=== PATIENT | female | born 1965 | race Caucasian/White ===

== ENCOUNTER 2017-11-13 17:02 | Observation (INO) ==
--- NOTE | 2017-11-13 17:23 | Emergency Department Note ---
START Narrative - START START: 52-year-old female who comes in complaining of rapid heartbeat. Patient's never had that in the past. EKG done shows A. fib flutter with rapid ventricular response 130s. Was taken immediately to a room in the ER.
[2017-11-13] MEDS ORDERED: 0.9 % Sodium Chloride 1,000 ML IVC ONE (17:40)
--- NOTE | 2017-11-13 17:42 | Emergency Department Note ---
Disposition Clinical Impression: Anemia Qualifiers: Anemia type: unspecified type Qualified Code(s): D64.9 - Anemia, unspecified Atrial flutter Qualifiers: Atrial flutter type: unspecified Qualified Code(s): I48.92 - Unspecified atrial flutter Disposition: Admitted As Inpatient Condition: Fair Time of Disposition: 18:26 Arrhythmia/Palpitations HPI - General Chief Complaint: ED Arrhythmia/Palpitations Stated Complaint: "Heart racing" Time Seen by Provider: 11/13/17 17:21 Source: patient Mode of arrival: ambulatory Limitations: no limitations Nursing Notes Reviewed: Yes Vital Signs Reviewed: Yes - History of Present Illness HPI Narrative: 52-year-old female with a history of hypertension diabetes present for evaluation of palpitations. Patient states that she has been having intermittent episodes over the past week and a half. Noted initially when she got up to take the dog out the middle the night. Patient noted he became more symptomatic today at work. Patient felt lightheaded. Patient denies any chest pain. Patient does note dyspnea on exertion. Patient denies any nausea or vomiting. Patient denies any abdominal pain. Patient denies a history of this rhythms in the past. - Related Data Home Medications Medication Instructions Recorded Confirmed Gabapentin [Neurontin] 800 mg PO TID 11/13/17 11/13/17 Ibuprofen [Motrin] 400 mg PO Q6H PRN 11/13/17 11/13/17 Lisinopril [Zestril] 10 mg PO DAILY 11/13/17 11/13/17 Metformin HCl [Metformin HCl ER] 1,000 mg PO BID 11/13/17 11/13/17 hydroCHLOROthiazide 25 mg PO DAILY 11/13/17 11/13/17 [Hydrochlorothiazide] Allergies Allergy/AdvReac Type Severity Reaction Status Date / Time No Known Allergies Allergy Verified 11/13/17 17:17 All systems ED: reviewed and negative except as stated. Constitutional: Reports: as per HPI. Denies: fever Eyes: Reports: as per HPI ENT ED: Reports: as per HPI Cardiovascular: Reports: as per HPI. Denies: chest pain Respiratory: Reports: as per HPI, dyspnea. Denies: cough Gastrointestinal: Reports: as per HPI. Denies: abdominal pain, nausea, vomiting Genitourinary: Reports: as per HPI Musculoskeletal: Reports: as per HPI Integumentary: Reports: as per HPI Neurological: Reports: as per HPI Psychiatric: Reports: as per HPI Endocrine: Reports: as per HPI Hematological/Lymphatic: Reports: as per HPI Past Medical History - Past Medical History Medical history: Reports: diabetes Psychiatric history: Reports: no psych history - Social History Smoking Status: Never smoker Smokeless Tobacco Status: No Alcohol use: Reports: none Drug use: Reports: none Physical Exam - General Limitations: no limitations General appearance: alert, in no apparent distress, obese - Head Head exam: atraumatic, normocephalic, normal inspection - Eye Eye exam: Present: normal appearance, EOMI - ENT ENT exam: normal exam, mucous membranes moist - Neck Neck exam: Present: normal inspection, trachea midline - Chest Chest inspection: Present: normal inspection, symmetric chest wall rise - Respiratory Respiratory exam: Absent: normal lung sounds bilaterally - Abdominal Exam Abdominal exam: Present: soft, Non-Tender. Absent: tenderness, distention, guarding, rebound, rigidity - Extremities Exam Extremities exam: Present: normal inspection. Absent: pedal edema - Back Exam Back exam: Present: normal inspection - Neurological Exam Neurological exam: Present: alert, oriented X3, CN II-XII intact - Skin Skin exam: Present: warm, dry, intact, normal color Course Course Narrative: Patient seen and examined. Patient appears to be in no acute distress. Patient 's EKG reviewed shows it she likely has atrial flutter with 2-1 conduction. Patient will get basic lab work including a lecture lites and cardiac enzymes. Patient will also get a d-dimer she has moderate risk for pulmonary embolism. Vital Signs Temperature 98.6 F 11/13/17 17:12 Pulse Rate 138 11/13/17 17:12 Respiratory Rate 16 11/13/17 17:12 Blood Pressure 119/71 11/13/17 17:12 O2 Sat by Pulse Oximetry 98 11/13/17 17:12 Temperature 97.9 F 11/14/17 12:12 Pulse Rate 63 11/14/17 12:12 Respiratory Rate 16 11/14/17 12:12 Blood Pressure 119/69 11/14/17 12:12 O2 Sat by Pulse Oximetry 100 11/14/17 12:12 Oxygen Delivery Oxygen Delivery Room Air Arrhythmia/Palpitations - MDM Narrative Medical decision making narrative: 52-year-old female presents for evaluation of her palpitations. Patient has no history of arrhythmias. Patient's EKG shows A. fib or a flutter. Patient was given IV fluid hydration as well as started on a Cardizem drip. Patient is not complaining of chest pain. Patient seen be stable. Patient's moderate risk [place] and had a negative d-dimer and is essentially ruled out pulmonary embolism. Patient had basic electrolytes monitored. Patient would require admission with cardiopulmonary monitoring and evaluation to determine etiology. Patient also may be started on heart rate controller medication. Patient is agreeable to this plan of care. - Lab Data Lab results reviewed: Yes I reviewed the patient's lab results. Result diagrams: 11/14/17 03:40 11/14/17 03:40 Lab Results 11/13/17 11/13/17 11/13/17 Range/Units 17:40 17:40 17:40 WBC 7.6 (4.3-11.1) K/mcL RBC 3.86 (3.82-4.97) M/mcL Hgb 10.7 L (11.5-15.4) g/dL Hct 33.5 L (35.3-44.9) % MCV 86.8 (83.0-100.0) fL MCH 27.7 L (28.0-33.3) pg MCHC 31.9 (31.6-35.5) g/dL RDW 12.7 (11.5-14.5) % Plt Count 267 (140-400) K/mcL MPV 10.6 (9.4-12.4) fL Immature Gran % 0.3 (0-4) % Seg Neutrophils % 71.9 % Lymphocytes % 18.0 % Monocytes % 8.2 % Eosinophils % 0.9 % Basophils % 0.7 % Neutrophils # 5.5 (1.6-8.9) K/mcL Lymphocytes # 1.4 (0.6-4.6) K/mcL Monocytes # 0.6 (0.0-1.3) K/mcL Eosinophils # 0.1 (0.0-0.6) K/mcL Basophils # 0.1 (0.0-0.2) K/mcL PT 11.9 (9.4-12.1) Seconds INR 1.1 APTT 29.7 (26.0-36.0) Seconds D-Dimer 371 (0-500) ng/mLFEU Sodium 139 (136-145) mEq/L Potassium 4.3 (3.5-5.1) mEq/L Chloride 106 (98-107) mEq/L Carbon Dioxide 26 (23-29) mEq/L BUN 21 H (6-20) mg/dL Creatinine 0.72 (0.60-1.20) mg/dL Est GFR ( Amer) > 60 (> 60) Est GFR (Non-Af Amer) > 60 (> 60) BUN/Creatinine Ratio 29 H (6-26) Glucose 128 H (70-105) mg/dL Calculated Osmolality 293 (280-300) Calcium 8.9 (8.6-10.3) mg/dL Troponin I (< 0.04) ng/mL TSH 3.829 (0.340-5.600) mcIU/mL 11/13/17 Range/Units 17:40 WBC (4.3-11.1) K/mcL RBC (3.82-4.97) M/mcL Hgb (11.5-15.4) g/dL Hct (35.3-44.9) % MCV (83.0-100.0) fL MCH (28.0-33.3) pg MCHC (31.6-35.5) g/dL RDW (11.5-14.5) % Plt Count (140-400) K/mcL MPV (9.4-12.4) fL Immature Gran % (0-4) % Seg Neutrophils % % Lymphocytes % % Monocytes % % Eosinophils % % Basophils % % Neutrophils # (1.6-8.9) K/mcL Lymphocytes # (0.6-4.6) K/mcL Monocytes # (0.0-1.3) K/mcL Eosinophils # (0.0-0.6) K/mcL Basophils # (0.0-0.2) K/mcL PT (9.4-12.1) Seconds INR APTT (26.0-36.0) Seconds D-Dimer (0-500) ng/mLFEU Sodium (136-145) mEq/L Potassium (3.5-5.1) mEq/L Chloride (98-107) mEq/L Carbon Dioxide (23-29) mEq/L BUN (6-20) mg/dL Creatinine (0.60-1.20) mg/dL Est GFR ( Amer) (> 60) Est GFR (Non-Af Amer) (> 60) BUN/Creatinine Ratio (6-26) Glucose (70-105) mg/dL Calculated Osmolality (280-300) Calcium (8.6-10.3) mg/dL Troponin I 0.03 (< 0.04) ng/mL TSH (0.340-5.600) mcIU/mL - Radiology Data Radiology results reviewed: Yes I reviewed the patient's radiology results. Chest X-Ray 11/13/17 17:22 IMPRESSION: No acute process. D/ / Ronen Castorena MD / Ronen Castorena MD Interpreting Provider: Ronen Castorena MD - EKG Data EKG attestation: Yes I reviewed and interpreted this EKG. Rate: tachycardia Rhythm: A. flutter [place]/QRS: left axis deviation When compared to previous EKG there are: previous EKG unavailable Interpretation: nonspecific ST-T wave changes Critical Care Time Critical Care Time: Yes Total Critical Care Time: 35 Attestation: The high probability of a clinically significant, sudden or life threatening deterioration of the [CV] system(s) required my full and direct attention, intervention and personal management. The aggregate critical care time was [35] minutes. This time is in addition to time spent performing reported procedures but includes the following: [x] Data Review and interpretation [x] Patient assessment and monitoring of vital signs [x] Documentation [x] Medication orders and management S.B.AAustinRAustin - S.B.Kristin Situation: Demographics Background: Presenting Complaint Assessment: Vital Signs, Course and respsone to treatment Recommendation: Barrier(s) to disposition, Recommendation based on pending studies, treatments, or consults S.B.AAustinRAustin Report Given to: Dr. Felicia Rivas Repor Time: 18:25 Attestation Statement - Attestation Attestation: I examined this patient and my medical decision-making was reviewed with the Resident Physician. I agree with the documented findings, disposition and treatment plan as described except to the extent set forth below. 52 yo F presents with concerns of palpitations. Present for 1.5 wks. associated with LH, near syncope. Denies drug or EtOH use. Never had this before. No new medications. No associated CP, n/v/d, rash, SOB, fever, trauma. ECG showed Afib with RVR vs Aflutter with 2:1 conduction. Pt started on heparin and cardizem in the ED. Pt comfortable to be admitted for further care.
[2017-11-13 17:51] LABS: Basophils # 0.1 K/mcL (0.0-0.2); Basophils % 0.7 %; Eosinophils # 0.1 K/mcL (0.0-0.6); Eosinophils % 0.9 %; Hematocrit 33.5 % (35.3-44.9); Hemoglobin 10.7 g/dL (11.5-15.4); Immature Granulocytes % 0.3 % (0-4); Lymphocytes # 1.4 K/mcL (0.6-4.6); Mean Corpuscular HGB Conc 31.9 g/dL (31.6-35.5); Mean Corpuscular Hemoglobin 27.7 pg (28.0-33.3); Mean Corpuscular Volume 86.8 fL (83.0-100.0); Mean Platelet Volume 10.6 fL (9.4-12.4); Monocytes # 0.6 K/mcL (0.0-1.3); Monocytes % 8.2 %; Neutrophils # 5.5 K/mcL (1.6-8.9); Platelet Count 267 K/mcL (140-400); Red Blood Count 3.86 M/mcL (3.82-4.97); Red Cell Distribution Width 12.7 % (11.5-14.5); Segmented Neutrophils % 71.9 %
[2017-11-13 18:02] LABS: INR 1.1; Prothrombin Time 11.9 Seconds (9.4-12.1)
[2017-11-13 18:03] LABS: BUN/Creatinine Ratio 29 (6-26); Blood Urea Nitrogen 21 mg/dL (6-20); Calcium 8.9 mg/dL (8.6-10.3); Carbon Dioxide 26 mEq/L (23-29); Chloride 106 mEq/L (98-107); Glucose 128 mg/dL (70-105); Osmolality,Calculated 293 (280-300); Potassium 4.3 mEq/L (3.5-5.1); Sodium 139 mEq/L (136-145); eGFR For African Americans > 60 (> 60); eGFR For Non-African Americans > 60 (> 60)
[2017-11-13 18:05] LABS: Activated Partial Thrombo Time 29.7 Seconds (26.0-36.0)
[2017-11-13 18:19] LABS: Thyroid Stimulating Hormone 3.829 mcIU/mL (0.340-5.600)
[2017-11-13] MEDS ORDERED: dilTIAZem HCl 100 MG in D5% in Water 50 ML IVC SCH ×2 (19:15)
[2017-11-13] MEDS ORDERED: Ibuprofen 600 MG TABLET PO ONE (19:30)
[2017-11-13] MEDS ORDERED: Naloxone 0.4 MG/ML INJ IVP PRN (20:53)
[2017-11-13] MEDS ORDERED: Acetaminophen 325 MG TABLET PO PRN (20:53)
[2017-11-13] MEDS ORDERED: D5% in Water 1,000 ML IVC PRN (20:58)
[2017-11-13] MEDS ORDERED: Dextrose Gel 15 GM/37.5 ML TUBE PO PRN ×2 (20:58)
[2017-11-13] MEDS ORDERED: *HR* Dextrose 50 % in Water (Syg) 50 ML SYRINGE IVP PRN (20:58)
--- NOTE | 2017-11-13 21:03 | Internal Med History&Physical ---
<Alberto Madrigal - Last Filed: 11/13/17 22:02> Date of Encounter: 11/13/17 Time of Encounter: 20:30 Assessment and Plan (1) Atrial flutter Current visit: Yes Status: Acute Per ECG, likely 2:1 conduction, converted on Cardizem 5ml/hr, currently sinus rhythm. TSH, d-dimer, troponin WNL, patient denies CHET. Echocardiogram for structural evaluation. Started on Cardizem drip in ED, will continue at 5ml/hr, patient has not had beta-kyaw use in past. CHADsVasc score of 3 (HTN/DM/female) Will start on Lovenox 1mg/kg SQ q12h in-patient. Appreciate Cardiology consult. Qualifiers: Atrial flutter type: unspecified Qualified Code(s): I48.92 - Unspecified atrial flutter (2) HTN (hypertension) Current visit: Yes Status: Acute Continuing HCTZ and Lisinopril. Qualifiers: Hypertension type: essential hypertension Qualified Code(s): I10 - Essential (primary) hypertension (3) Non-insulin dependent type 2 diabetes mellitus Current visit: Yes Status: Acute Takes Metformin at home; will do SSI with ACHS. Diabetic/cardiac diet. (4) DVT prophylaxis Current visit: Yes Status: Acute On Lovenox per new onset atrial flutter with chadsvasc of 3 Internal Medicine - H&P: HPI Admitted From: Emergency Dept Plans for Post Hospital Care: Home History of present illness: Ms. Rm is a 52 year old female with new onset palpitations starting a week and a half ago with past medical history of HTN, DM2 on metformin. Patient reports it happens intermittently, first occurring when getting up to walk her dog, associated with lightheadedness and mild dyspnea with exertion, no chest pain. ECG in ED read as 2:1 aflutter, TSH, d-dimer WNL, pt was converted to sinus rhythm on cardizem gtt 5mg/hr. Currently patient is comfortable in the ED bed, does not feel palpitations at this time. Past Med Surg Social Fam HX - Past Medical History Medical history: diabetes Psychiatric history: no psych history - Social History Smoking Status: Never smoker Smokeless Tobacco Status: No Alcohol use: none Drug use: none Internal Medicine - H&P: Meds Gabapentin [Neurontin] 800 mg PO TID 11/13/17 [History] Ibuprofen [Motrin] 400 mg PO Q6H PRN 11/13/17 [History] Lisinopril [Zestril] 10 mg PO DAILY 11/13/17 [History] Metformin HCl [Metformin HCl ER] 1,000 mg PO BID 11/13/17 [History] hydroCHLOROthiazide [Hydrochlorothiazide] 25 mg PO DAILY 11/13/17 [History] 3 Allergy/AdvReac Type Severity Reaction Status Date / Time No Known Allergies Allergy Verified 11/13/17 17:17 All Systems PM: A 10-system review of systems was performed and is negative for pertinent findings except as documented above in the HPI. - Constitutional Vitals: Temp Pulse Resp BP Pulse Ox 98.6 F 101 16 126/80 100 11/13/17 17:12 11/13/17 20:05 11/13/17 20:05 11/13/17 20:05 11/13/17 20:05 General appearance: Present: A&O X 3, morbidly obese, no acute distress, answers questions appropriately - Head Head exam: Present: atraumatic - ENT ENT exam: Present: mucous membranes moist - Neck Neck exam general surgery: Present: full ROM, normal inspection. Absent: thyromegaly - Respiratory Respiratory exam: Present: CTAB - Cardiovascular Cardiovascular exam: Present: +S1, +S2. Absent: systolic murmur, tachycardia Additional comments: on Cardizem gtt 5ml/hr - Extremities Exam Extremities exam: Absent: calf tenderness - Skin Skin exam: Absent: cyanosis, diaphoretic Internal Med - H&P Results - Labs CBC & Chem 7: 11/13/17 17:40 11/13/17 17:40 Labs: Short CBC 11/13/17 Range/Units 17:40 WBC 7.6 (4.3-11.1) K/mcL Hgb 10.7 L (11.5-15.4) g/dL Hct 33.5 L (35.3-44.9) % Plt Count 267 (140-400) K/mcL Neutrophils # 5.5 (1.6-8.9) K/mcL BMP 11/13/17 17:40 Sodium 139 Potassium 4.3 Chloride 106 Carbon Dioxide 26 BUN 21 H Creatinine 0.72 Glucose 128 H Calcium 8.9 Cardiac Enzymes 11/13/17 Range/Units 17:40 Troponin I 0.03 (< 0.04) ng/mL - Impressions ITS Impressions Chest X-Ray 11/13/17 17:22 IMPRESSION: No acute process. D/ / Ronen Castorena MD / Ronen Castorena MD Interpreting Provider: Ronen Castorena MD <Treva Cuellar - Last Filed: 11/13/17 23:21> Date of Encounter: 11/13/17 Internal Medicine - H&P: HPI History of present illness: Ms. Rm is a 52 year old female All Systems PM: A 10-system review of systems was performed and is negative for pertinent findings except as documented above in the HPI. - Constitutional Vitals: Temp Pulse Resp BP Pulse Ox 97.0 F L 66 14 112/51 98 11/13/17 20:50 11/13/17 23:03 11/13/17 23:03 11/13/17 23:03 11/13/17 23:03 Internal Med - H&P Results - Labs CBC & Chem 7: 11/13/17 17:40 11/13/17 17:40 - Attending Attestation I have seen and examined pt independently. I have discussed with Resident physician Dr Madrigal regarding the management plan, agree with the documentation.
[2017-11-13] MEDS: Insulin LISPRO 300 UNITS/3 ML VIAL SQ SCH (22:46)
[2017-11-13] MEDS: hydroCHLOROthiazide 25 MG TABLET PO SCH (23:09)
[2017-11-14] MEDS: *HR* Enoxaparin 60 MG/0.6 ML SYRINGE SQ SCH ×3 (01:28→17:32)
[2017-11-14 04:12] LABS: Basophils % 0.5 %; Eosinophils # 0.1 K/mcL (0.0-0.6); Eosinophils % 2.3 %; Hematocrit 30.6 % (35.3-44.9); Hemoglobin 9.7 g/dL (11.5-15.4); Immature Granulocytes % 0.3 % (0-4); Lymphocytes # 1.8 K/mcL (0.6-4.6); Lymphocytes % 29.4 %; Mean Corpuscular HGB Conc 31.7 g/dL (31.6-35.5); Mean Corpuscular Hemoglobin 27.8 pg (28.0-33.3); Mean Corpuscular Volume 87.7 fL (83.0-100.0); Mean Platelet Volume 10.7 fL (9.4-12.4); Monocytes # 0.6 K/mcL (0.0-1.3); Monocytes % 9.7 %; Neutrophils # 3.6 K/mcL (1.6-8.9); Platelet Count 222 K/mcL (140-400); Red Blood Count 3.49 M/mcL (3.82-4.97); Red Cell Distribution Width 12.6 % (11.5-14.5); Segmented Neutrophils % 57.8 %
[2017-11-14 04:25] LABS: BUN/Creatinine Ratio 28 (6-26); Blood Urea Nitrogen 18 mg/dL (6-20); Calcium 8.3 mg/dL (8.6-10.3); Carbon Dioxide 25 mEq/L (23-29); Chloride 110 mEq/L (98-107); Glucose 154 mg/dL (70-105); Osmolality,Calculated 293 (280-300); Potassium 4.1 mEq/L (3.5-5.1); Sodium 139 mEq/L (136-145); eGFR For African Americans > 60 (> 60); eGFR For Non-African Americans > 60 (> 60)
[2017-11-14] MEDS ORDERED: *HR* Enoxaparin 60 MG/0.6 ML SYRINGE SQ SCH (06:00)
[2017-11-14] MEDS: Diltiazem CD (24hr) 120 MG CAPSULE PO SCH ×2 (06:40→09:17)
[2017-11-14] MEDS: Insulin LISPRO 300 UNITS/3 ML VIAL SQ SCH ×4 (09:17→21:40)
[2017-11-14] MEDS: hydroCHLOROthiazide 25 MG TABLET PO SCH (09:17)
[2017-11-14] MEDS: Gabapentin 400 MG CAPSULE PO SCH ×3 (09:18→21:42)
--- NOTE | 2017-11-14 09:57 | Cardiology Consult Note ---
<Manuel Baez - Last Filed: 11/14/17 13:08> Date of Encounter: 11/14/17 Time of Encounter: 09:45 Assessment and Plan (1) Atrial flutter Current Visit: Yes Status: Acute Initially presented to the hospital with palpitations. -Heart rate was elevated at 138 bpm on presentation; HR currently well controlled at 67 bpm -EKG demonstrated likely 2:1 conduction; converted to sinus rhythm on Cardizem 5ml/hr. -TSH, d-dimer, troponin all within normal limits. -Echocardiogram has been ordered for structural evaluation. -[id number] score of 3 (HTN/DM/female). Plan: -Cardizem drip 5 mg/hr. -Cardizem CD 24 hours 120 mg PO QD. -Lovenox 180 mg SQ Q12. -Continuous cardiac monitoring. -Cardiac diet. -Will need residential anticoagulation -Possible ischemic workup in the outpatient setting. Qualifiers: Atrial flutter type: unspecified Qualified Code(s): I48.92 - Unspecified atrial flutter (2) HTN (hypertension) Current Visit: Yes Status: Acute Patient has known history of hypertension. Currently well-controlled at 117/64. Plan: -Hydrochlorothiazide 25 mg PO QD -Lisinopril 10 mg PO QD Qualifiers: Hypertension type: essential hypertension Qualified Code(s): I10 - Essential (primary) hypertension (3) DVT prophylaxis Current Visit: Yes Status: Acute Lovenox 180 mg SQ Q12 Discussion w patient/family: The assessment and plan as outlined above was discussed with the patient and/or family members who expressed understanding and agreement. All questions were answered. Thank you for involving us in the care of your patient. Please call with any questions. History of Present Illness Consult date: 11/14/17 Chief complaint: Palpitations History of present illness: Ms. Rm is a 52 year old female with PMH of HTN and DM on metformin who presented to the ED with a chief complaint of palpitations and a rapid heart rate. Patient reported that she has been having intermittent episodes of palpitations for the last week and a half. She noted initially when she got up to take the dog out in the middle of the night. Patient reported feeling more symptomatic on date of admission at work. She felt lightheaded and had dyspnea on exertion. She denied having any chest pain, nausea, vomiting, or abdominal pain. She denied having a prior history of arrhythmias. Upon arrival to the emergency department, patient had an elevated heart rate at 138 bpm. All other vital signs were within normal limits. Chest x-ray showed no acute process. EKG demonstrated atrial flutter with 2-1 conduction. Patient was started on IV fluid hydration and a Cardizem drip. Patient's [id number] score is 3 (HTN/DM/Female); was started on Lovenox 1 mg/kg subcutaneous every 12. Patient was seen and examined at bedside this morning. Reports feeling well today. Denies chest pain or palpitations. Resting comfortably in bed; no complaints at this time. Past Med Surg Social Fam HX - Past Medical History Medical history: diabetes Psychiatric history: no psych history - Social History Smoking Status: Never smoker Smokeless Tobacco Status: No Alcohol use: none Drug use: none Medications and Allergies Gabapentin [Neurontin] 800 mg PO TID 11/13/17 [History] Ibuprofen [Motrin] 400 mg PO Q6H PRN 11/13/17 [History] Lisinopril [Zestril] 10 mg PO DAILY 11/13/17 [History] Metformin HCl [Metformin HCl ER] 1,000 mg PO BID 11/13/17 [History] hydroCHLOROthiazide [Hydrochlorothiazide] 25 mg PO DAILY 11/13/17 [History] 3 Allergy/AdvReac Type Severity Reaction Status Date / Time No Known Allergies Allergy Verified 11/13/17 17:17 All Systems Review: A 10-system review of systems was performed and is negative for pertinent findings except as documented above in the HPI. - Cardiovascular Cardiovascular: no diaphoresis, no dyspnea at rest, no dyspnea on exertion, no irregular heart rhythm, no radiating jaw, neck or arm pain - Neurological Neurological: no syncope Physical Examination Vital Signs, Last 4 Hours Temp Pulse Resp BP Pulse Ox 11/14/17 07:28 98 F 67 16 117/64 99 11/14/17 06:00 97.8 F 67 20 131/65 92 General: Conversant, No Apparent Distress HEENT: Atraumatic, Normocephaly, Mucus Membranes Moist Neck: No JVD, Normal carotid pulses Cardiac: Reg Rate and Rhythm, Normal S1 and S2 Lungs: Normal Breath Sounds, No Wheeze, Rales, Rhonchi Neuro: Alert and responsive, No focal deficits noted Skin: No rashes noted on visualized skin Musculoskeletal: No Chest Wall Tenderness Extremities: No Clubbing, No Cyanosis, No Edema, Normal Pulses Results 11/14/17 03:40 11/14/17 03:40 Lab Results 11/14/17 11/14/17 03:40 03:40 WBC 6.2 Hgb 9.7 L Hct 30.6 L Plt Count 222 Sodium 139 Potassium 4.1 Chloride 110 H Carbon Dioxide 25 BUN 18 Creatinine 0.64 Glucose 154 H Calcium 8.3 L Magnesium 2.0 Consult Discharge Plan - Plan Referrals: NONE,PCP [Primary Care Provider] - Lizzie Stallworth [Family Provider] - <Juan Carlos Lujan - Last Filed: 11/14/17 16:17> Date of Encounter: 11/14/17 - Attending Attestation I examined this patient and my medical decision-making was reviewed with the Resident Physician. I agree with the documented findings, disposition and treatment plan as described except to the extent set forth below. 52 YOF with PAF now in NSR on CCB and lovenox for stroke risk reduction Oral CCB and NOAC for stroke risk reduction Outpatient NST for ischemic work up Assessment and Plan Discussion w patient/family: The assessment and plan as outlined above was discussed with the patient and/or family members who expressed understanding and agreement. All questions were answered. Thank you for involving us in the care of your patient. Please call with any questions. History of Present Illness History of present illness: Ms. Rm is a 52 year old female All Systems Review: A 10-system review of systems was performed and is negative for pertinent findings except as documented above in the HPI. Results 11/14/17 03:40 11/14/17 03:40 Lab Results 11/14/17 11/14/17 03:40 03:40 WBC 6.2 Hgb 9.7 L Hct 30.6 L Plt Count 222 Sodium 139 Potassium 4.1 Chloride 110 H Carbon Dioxide 25 BUN 18 Creatinine 0.64 Glucose 154 H Calcium 8.3 L Magnesium 2.0
[2017-11-14] MEDS ORDERED: Perflutren Lipid Microsphere 1.3 ML in 0.9 % Sodium Chloride 8.7 ML IVP ONE (10:22)
--- NOTE | 2017-11-14 12:07 | Electrocardiograph Report ---
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
--- NOTE | 2017-11-14 16:02 | Internal Med Progress Note ---
Date of Encounter: 11/14/17 Time of Encounter: 16:00 - Assessment and plan (1) Atrial flutter Current Visit: Yes Status: Acute Assessment and plan: Atrial flutter with rapid ventricular response Responded to Cardizem drip currently stable on 120 mg daily Was started on Lovenox, the patient has a [id number] score of 3 (HTN/DM/female) Anticoagulant options were discussed and the patient prefers to be on Coumadin which will be started tonight will discharge home if stable in the morning Qualifiers: Atrial flutter type: unspecified Qualified Code(s): I48.92 - Unspecified atrial flutter (2) Diastolic dysfunction Current Visit: Yes Status: Acute Assessment and plan: Echocardiogram shows an ejection fraction of 60% with moderate diastolic dysfunction (3) Anemia Current Visit: Yes Status: Acute Assessment and plan: Iron deficiency anemia Qualifiers: Anemia type: iron deficiency Iron deficiency anemia type: unspecified iron deficiency Qualified Code(s): D50.9 - Iron deficiency anemia, unspecified (4) HTN (hypertension) Current Visit: Yes Status: Acute Qualifiers: Hypertension type: essential hypertension Qualified Code(s): I10 - Essential (primary) hypertension (5) Non-insulin dependent type 2 diabetes mellitus Current Visit: Yes Status: Acute Assessment and plan: Check hemoglobin A1c Insulin sliding scale - Subjective Interval history: Denies any chest pain, shortness of breath, no abdominal pain, no dysuria no fevers or chills, no headaches - Constitutional Vitals: Temp Pulse Resp BP Pulse Ox 97.9 F 63 16 119/69 100 11/14/17 12:12 11/14/17 12:12 11/14/17 12:12 11/14/17 12:12 11/14/17 12:12 General appearance: Present: A&O X 3, morbidly obese, no acute distress, answers questions appropriately - Head Head exam: Present: atraumatic, normocephalic - Eye Eye exam: Present: PERRL, conjuntiva pink, sclera anicteric Pupils: Present: PERRL - Neck Neck exam general surgery: Present: supple, trachea midline. Absent: lymphadenopathy - Respiratory Respiratory exam: Present: CTAB. Absent: accessory muscle use, rales, rhonchi, wheezes - Cardiovascular Cardiovascular exam: Present: RRR, +S1, +S2. Absent: diastolic murmur, gallop, rubs, systolic murmur - GI/Abdominal GI/Abdominal exam: Present: normal bowel sounds, soft, no peritoneal signs. Absent: distended, tenderness - Extremities Exam Extremities exam: Present: warm, radial pulses palpable and symmetrical. Absent : calf tenderness, cyanotic, pedal edema - Neurological Exam Neurological exam: Present: CN II-XII intact, oriented X3, no focal deficits. Absent: pronater drift, facial droop, speech deficit - Skin Skin exam: Present: dry, intact Internal Medicine: Result - Labs CBC & Chem 7: 11/14/17 03:40 11/14/17 03:40 Labs: Short CBC 11/14/17 Range/Units 03:40 WBC 6.2 (4.3-11.1) K/mcL Hgb 9.7 L (11.5-15.4) g/dL Hct 30.6 L (35.3-44.9) % Plt Count 222 (140-400) K/mcL Neutrophils # 3.6 (1.6-8.9) K/mcL BMP 11/14/17 03:40 Sodium 139 Potassium 4.1 Chloride 110 H Carbon Dioxide 25 BUN 18 Creatinine 0.64 Glucose 154 H Calcium 8.3 L - ABG Interpretation ABG results: PT/INR, D-dimer PT 11.9 Seconds (9.4-12.1) 11/13/17 17:40 D-Dimer 371 ng/mLFEU (0-500) 11/13/17 17:40 - Impressions Impressions Echocardiogram 11/14/17 10:00 Impressions: Technically sub-optimal due to body habitus. LVEF 60%. Normal LV chamber size, wall thickness and function. Moderate left ventricular diastolic dysfunction. Right ventricle was not well visualized. Grossly, moderately dilated left atrium. Unable to estimate RVSP due to lack of TR jet. Valves were not well visualized. No obvious dysfunction by Doppler. Left Ventricular Wall Motion: Rest Echo Findings All wall segments showed normal motion. Findings: Study Quality * Technically sub-optimal due to body habitus. ECG Findings * Normal sinus rhythm. Left Ventricle * LVEF 60%. * Normal LV chamber size, wall thickness and function. * Moderate left ventricular diastolic dysfunction. Right Ventricle * Right ventricle was not well visualized. Left Atrium * Grossly, moderately dilated left atrium. Right Atrium * Mildly dilated right atrium. Interatrial Septum * Interatrial septum not well evaluated. Aortic Valve * Aortic valve not well visualized. * No aortic regurgitation. * No aortic stenosis. Mitral Valve * Mitral valve not well visualized. * No mitral regurgitation. * No mitral stenosis. Tricuspid Valve * Tricuspid valve not well visualized. * No tricuspid regurgitation. * Unable to estimate RVSP due to lack of TR jet. Pulmonic Valve * Pulmonic valve not well visualized. Aorta * Normally sized aortic root. Pericardium * The pericardium appears normal. IVC * Normal IVC dimensions and inspiratory collapse. Pulmonary Artery * Normal visualized portions of the main pulmonary artery. Consult Discharge Plan - Plan Referrals: NONE,PCP [Primary Care Provider] - Lizzie Stallworth [Family Provider] -
[2017-11-14] MEDS ORDERED: Warfarin perPT PO PRN (18:00)
[2017-11-14] MEDS ORDERED: *HR* Warfarin 5 MG TABLET PO ONE (18:00)
[2017-11-15] MEDS: *HR* Enoxaparin 60 MG/0.6 ML SYRINGE SQ SCH (05:08)
[2017-11-15 05:34] LABS: Hematocrit 32.7 % (35.3-44.9); Hemoglobin 10.4 g/dL (11.5-15.4)
[2017-11-15 05:36] LABS: INR 1.2; Prothrombin Time 12.5 Seconds (9.4-12.1)
[2017-11-15 05:49] LABS: Hemoglobin A1C 5.3 %
[2017-11-15 08:33] VITALS: BP 133/73
[2017-11-15] MEDS: Insulin LISPRO 300 UNITS/3 ML VIAL SQ SCH (08:37)
[2017-11-15] MEDS: Gabapentin 400 MG CAPSULE PO SCH (08:38)
[2017-11-15] MEDS: Diltiazem CD (24hr) 120 MG CAPSULE PO SCH (08:38)
[2017-11-15] MEDS: hydroCHLOROthiazide 25 MG TABLET PO SCH (08:38)
--- NOTE | 2017-11-15 12:13 | Discharge Summary ---
Date of Encounter: 11/15/17 Time of Encounter: 12:10 - Discharge Diagnosis (1) Atrial flutter Priority: Primary Status: Acute Comments: Atrial flutter with rapid ventricular response Qualifiers: Atrial flutter type: unspecified Qualified Code(s): I48.92 - Unspecified atrial flutter (2) Diastolic dysfunction Priority: Secondary Status: Acute (3) Anemia Priority: Secondary Status: Acute Qualifiers: Anemia type: iron deficiency Iron deficiency anemia type: unspecified iron deficiency Qualified Code(s): D50.9 - Iron deficiency anemia, unspecified (4) HTN (hypertension) Priority: Secondary Status: Acute Qualifiers: Hypertension type: essential hypertension Qualified Code(s): I10 - Essential (primary) hypertension (5) Non-insulin dependent type 2 diabetes mellitus Priority: Secondary Status: Acute - Discharge Medications Prescriptions: Diltiazem CD (24hr) [Cardizem CD] 120 mg PO DAILY #30 cap.er.24h Rivaroxaban [Xarelto] 20 mg PO DAILY #30 tablet Home Medications: Gabapentin [Neurontin] 800 mg PO TID 11/13/17 [History] Ibuprofen [Motrin] 400 mg PO Q6H PRN 11/13/17 [History] Lisinopril [Zestril] 10 mg PO DAILY 11/13/17 [History] Metformin HCl [Metformin HCl ER] 1,000 mg PO BID 11/13/17 [History] hydroCHLOROthiazide [Hydrochlorothiazide] 25 mg PO DAILY 11/13/17 [History] Diltiazem CD (24hr) [Cardizem CD] 120 mg PO DAILY #30 cap.er.24h 11/15/17 [Rx] Rivaroxaban [Xarelto] 20 mg PO DAILY #30 tablet 11/15/17 [Rx] Allergies/Adverse Reactions: 3 Allergy/AdvReac Type Severity Reaction Status Date / Time No Known Allergies Allergy Verified 11/13/17 17:17 Procedures/tests Complete & Pending: Procedures Performed prior 72 hours Category Date Time Status EV echocardiogram w enhance Routine Y 11/14/17 10:00 Completed Date of admission: 11/13/17 21:14 Primary care physician: PCP NONE Consults: 11/13/17 22:04 Consult to Cardiology [CONS] Routine Comment: Consulting Provider: [facility] [place] Reason for Consult: New tachyarrhythmia, likely 2:1 aflutter. converted to NSR with cardizem gtt 5mg/hr. started on lovenox. chadsvasc 3. neg trop, tsh, d- dimer. Call Completed: No - Patient Status Disposition: Home, Self-Care Condition: Good Overall status at discharge: patient is back to baseline - Discharge Instructions Instructions: Rivaroxaban (By mouth), Atrial Flutter (DC) Follow Up With: NONE,PCP [Non-Partnered Physician] - Lizzie Stallworth [Family Provider] - Additional Instructions: Follow-up with primary care physician within the next 7 days. Follow-up with cardiology within the next month to schedule a nuclear stress test. Continue Cardizem and Xarelto. - Diet and Activity Activity: increase activity as tolerated Diet: diabetic diet Hospital course: Ms. Rm is a 52 year old female with PMH of HTN, morbid obesity, and DM not insulin-dependent on metformin who presented to the ED with a chief complaint of palpitations and a rapid heart rate. Patient reported that she has been having intermittent episodes of palpitations for the last week and a half. She noted initially when she got up to take the dog out in the middle of the night. Patient reported feeling more symptomatic on date of admission at work. She felt lightheaded and had dyspnea on exertion. She denied having any chest pain , nausea, vomiting, or abdominal pain. She denied having a prior history of arrhythmias. Upon arrival to the emergency department, patient had an elevated heart rate at 138 bpm. All other vital signs were within normal limits. Chest x-ray showed no acute process. EKG demonstrated atrial flutter with 2-1 conduction. Patient was started on IV fluid hydration and a Cardizem drip. Patient's [id number] score is 3 (HTN/DM/Female); was started on Lovenox 1 mg/kg subcutaneous every 12. Patient was seen and examined at bedside this morning. Was evaluated by the cardiology team, Cardizem was continued. Anticoagulation was recommended, options were discussed with the patient regarding Coumadin and Xarelto, she prefers to be discharged on Xarelto [employer] Operator recommending an outpatient nuclear stress test for ischemic workup. - Time Spent with Patient Total time spent providing and/or coordinating discharge services: Greater than 30 minutes (40 min) - Constitutional Vitals: Temp Pulse Resp BP Pulse Ox 97.8 F 62 16 133/73 99 11/15/17 08:00 11/15/17 08:00 11/15/17 08:00 11/15/17 08:00 11/15/17 08:00 General appearance: Present: A&O X 3, morbidly obese, no acute distress, answers questions appropriately - Head Head exam: Present: atraumatic, normocephalic - Eye Eye exam: Present: PERRL, conjuntiva pink, sclera anicteric Pupils: Present: PERRL - Neck Neck exam general surgery: Present: supple, trachea midline. Absent: lymphadenopathy - Respiratory Respiratory exam: Present: CTAB. Absent: accessory muscle use, rales, rhonchi, wheezes - Cardiovascular Cardiovascular exam: Present: RRR, +S1, +S2. Absent: diastolic murmur, gallop, rubs, systolic murmur - GI/Abdominal GI/Abdominal exam: Present: normal bowel sounds, soft, no peritoneal signs. Absent: distended, tenderness - Extremities Exam Extremities exam: Present: warm, radial pulses palpable and symmetrical. Absent : calf tenderness, cyanotic, pedal edema - Neurological Exam Neurological exam: Present: CN II-XII intact, oriented X3, no focal deficits. Absent: pronater drift, facial droop, speech deficit - Skin Skin exam: Present: dry, intact
--- NOTE | 2017-11-15 14:03 | Cardiology Progress Note ---
<Manuel Baez - Last Filed: 11/15/17 14:00> Date of Encounter: 11/15/17 Time of Encounter: 13:30 Assessment and Plan (1) Atrial flutter Status: Acute Initially presented to the hospital with palpitations. -Heart rate was elevated at 138 bpm on presentation. -EKG demonstrated likely 2:1 conduction; converted to sinus rhythm on Cardizem 5ml/hr. -TSH, d-dimer, troponin all within normal limits. -Echocardiogram has been ordered for structural evaluation. -[id number] score of 3 (HTN/DM/female). Plan: -Patient has been started on coumadin. -NST in the outpatient setting. -Patient to be discharged today. Qualifiers: Atrial flutter type: unspecified Qualified Code(s): I48.92 - Unspecified atrial flutter (2) HTN (hypertension) Status: Acute Patient has known history of hypertension. Plan: -Hydrochlorothiazide 25 mg PO QD -Lisinopril 10 mg PO QD Qualifiers: Hypertension type: essential hypertension Qualified Code(s): I10 - Essential (primary) hypertension (3) DVT prophylaxis Status: Acute Patient started on Coumadin. Discussion w patient/family: The assessment and plan as outlined above was discussed with the patient and/or family members who expressed understanding and agreement. All questions were answered. Thank you for involving us in the care of your patient. Please call with any questions. Subjective Interval history: Patient seen and examined at bedside this afternoon. Reports that she is feeling well today. Has no complaints at this time. Will be discharged today. Objective General: Conversant, No Apparent Distress HEENT: Atraumatic, Normocephaly, Mucus Membranes Moist Neck: No JVD, Normal carotid pulses Cardiac: Normal S1 and S2, No Murmur Lungs: Normal Breath Sounds, No Wheeze, Rales, Rhonchi Neuro: Alert and responsive, No focal deficits noted Skin: No rashes noted on visualized skin Musculoskeletal: No Chest Wall Tenderness Extremities: No Clubbing, No Cyanosis, No Edema, Normal Pulses Results 11/15/17 05:15 11/14/17 03:40 Lab Results 11/15/17 11/15/17 05:15 05:15 Hgb 10.4 L Hct 32.7 L INR 1.2 Consult Discharge Plan - Plan Instructions: Diltiazem (By mouth), Rivaroxaban (By mouth), Atrial Flutter (DC) Additional Instructions: Follow-up with primary care physician within the next 7 days. Follow-up with cardiology within the next month to schedule a nuclear stress test. Continue Cardizem and Xarelto. Referrals: Naomi Brock CNP [Primary Care Provider] - 11/21/17 11:30 am NONE,PCP [Non-Partnered Physician] - Juan Carlos Lujan [Partnered Physician] - 11/22/17 1:30 pm Lizzie Stallworth [Family Provider] - Prescriptions: Diltiazem CD (24hr) [Cardizem CD] 120 mg PO DAILY #30 cap.er.24h Rivaroxaban [Xarelto] 20 mg PO DAILY #30 tablet <Juan Carlos Lujan - Last Filed: 11/15/17 15:25> Date of Encounter: 11/15/17 Assessment and Plan (1) Atrial flutter Status: Acute Initially presented to the hospital with palpitations. -Heart rate was elevated at 138 bpm on presentation. -EKG demonstrated likely 2:1 conduction; converted to sinus rhythm on Cardizem 5ml/hr. -TSH, d-dimer, troponin all within normal limits. -Echocardiogram has been ordered for structural evaluation. -[id number] score of 3 (HTN/DM/female). Plan: -Patient has been started on coumadin. -NST in the outpatient setting. -Patient to be discharged today. Qualifiers: Atrial flutter type: unspecified Qualified Code(s): I48.92 - Unspecified atrial flutter Discussion w patient/family: The assessment and plan as outlined above was discussed with the patient and/or family members who expressed understanding and agreement. All questions were answered. Thank you for involving us in the care of your patient. Please call with any questions. I examined this patient and my medical decision-making was reviewed with the Resident Physician. I agree with the documented findings, disposition and treatment plan as described except to the extent set forth below. 52 YOF with aflutter rate controlled on AC for stroke risk reduction. OP NST for ischemia work up Results 11/15/17 05:15 11/14/17 03:40 Lab Results 01/11/18 01/11/18 05:15 05:15 Hgb 10.4 L Hct 32.7 L INR 1.2
== END 2017-11-15 14:00 | disposition home or self-care (01) ==
LOC: 2NENU 17:02 → EMEROO 17:02 → SUATTDRO 21:14 → 2NENU 21:46
PROVIDERS: ADMIT Internal Medicine; ATTEND Internal Medicine

== ENCOUNTER 2018-03-22 10:05 | Inpatient (IN) ==
--- NOTE | 2018-03-22 10:26 | Emergency Department Note ---
Disposition Clinical Impression: Fatigue, Anemia, GI bleed Disposition: Admitted As Inpatient Condition: Fair General Adult HPI - General Chief complaint: ED Shortness of Breath/Dyspnea Stated complaint: BERNIE, chest discomfort Time Seen by Provider: 03/22/18 10:09 - History of Present Illness Pain Scale: 0 - Related Data Home Medications Medication Instructions Recorded Confirmed Gabapentin [Neurontin] 800 mg PO TID PRN 11/13/17 03/22/18 Lisinopril [Zestril] 10 mg PO DAILY 11/13/17 03/22/18 hydroCHLOROthiazide 25 mg PO DAILY 11/13/17 03/22/18 [Hydrochlorothiazide] Cholecalciferol (Vitamin D3) 10,000 unit PO MOWEFR 03/22/18 03/22/18 [Vitamin D3] Pravastatin Sodium [Pravastatin 10 mg PO HS 03/22/18 03/22/18 Sodium] metFORMIN [Glucophage] 500 mg PO BID 03/22/18 03/22/18 Previous Rx's Medication Instructions Recorded Diltiazem CD (24hr) [Cardizem CD] 120 mg PO DAILY #30 cap.er.24h 11/15/17 Rivaroxaban [Xarelto] 20 mg PO DAILY #30 tablet 11/15/17 Allergies Allergy/AdvReac Type Severity Reaction Status Date / Time No Known Allergies Allergy Verified 03/22/18 12:24 Past Medical History - Past Medical History Medical history: Reports: atrial fibrillation, diabetes, hypertension Psychiatric history: Reports: no psych history - Social History Smoking Status: Never smoker Smokeless Tobacco Status: No Alcohol use: Reports: none Drug use: Reports: none Physical Exam - General General appearance: alert, in no apparent distress Course Vital Signs Temperature 98.4 F 03/22/18 10:23 Pulse Rate 87 03/22/18 10:23 Respiratory Rate 20 03/22/18 10:23 Blood Pressure 148/72 03/22/18 10:23 O2 Sat by Pulse Oximetry 100 03/22/18 10:23 Temperature 97.9 F 03/22/18 14:50 Pulse Rate 79 03/22/18 14:50 Respiratory Rate 16 03/22/18 14:50 Blood Pressure 96/67 03/22/18 14:50 O2 Sat by Pulse Oximetry 97 03/22/18 14:50 Oxygen Delivery Oxygen Delivery Room Air Medical Decision Making - Lab Data Result diagrams: 03/22/18 10:30 03/22/18 10:30 Lab Results 03/22/18 03/22/18 03/22/18 Range/Units 10:30 10:30 10:30 WBC 3.5 L (4.3-11.1) K/mcL RBC 2.64 L (3.82-4.97) M/mcL Hgb 6.8 L (11.5-15.4) g/dL Hct 21.0 L (35.3-44.9) % MCV 79.5 L (83.0-100.0) fL MCH 25.8 L (28.0-33.3) pg MCHC 32.4 (31.6-35.5) g/dL RDW 16.2 H (11.5-14.5) % Plt Count 194 (140-400) K/mcL MPV 11.4 (9.4-12.4) fL Immature Gran % 0.9 (0-4) % Seg Neutrophils % 61.1 % Lymphocytes % 25.4 % Monocytes % 10.3 % Eosinophils % 1.7 % Basophils % 0.6 % Neutrophils # 2.1 (1.6-8.9) K/mcL Lymphocytes # 0.9 (0.6-4.6) K/mcL Monocytes # 0.4 (0.0-1.3) K/mcL Eosinophils # 0.1 (0.0-0.6) K/mcL Basophils # 0.0 (0.0-0.2) K/mcL PT (9.4-12.1) Seconds INR D-Dimer (0-500) ng/mLFEU Sodium 136 (136-145) mEq/L Potassium 4.2 (3.5-5.1) mEq/L Chloride 104 (98-107) mEq/L Carbon Dioxide 24 (23-29) mEq/L BUN 20 (6-20) mg/dL Creatinine 0.59 L (0.60-1.20) mg/dL Est GFR ( Amer) > 60 (> 60) Est GFR (Non-Af Amer) > 60 (> 60) BUN/Creatinine Ratio 34 H (6-26) Glucose 178 H (70-105) mg/dL Est Mean Plasma Glucose mg/dl Hemoglobin A1c ( - 5.6) % Calculated Osmolality 289 (280-300) Calcium 8.6 (8.6-10.3) mg/dL Troponin I < 0.03 (< 0.04) ng/mL B-Natriuretic Peptide 180 H (Less than 100) pg/mL Blood Type Antibody Screen Crossmatch 03/22/18 03/22/18 03/22/18 Range/Units 10:30 10:30 12:22 WBC (4.3-11.1) K/mcL RBC (3.82-4.97) M/mcL Hgb (11.5-15.4) g/dL Hct (35.3-44.9) % MCV (83.0-100.0) fL MCH (28.0-33.3) pg MCHC (31.6-35.5) g/dL RDW (11.5-14.5) % Plt Count (140-400) K/mcL MPV (9.4-12.4) fL Immature Gran % (0-4) % Seg Neutrophils % % Lymphocytes % % Monocytes % % Eosinophils % % Basophils % % Neutrophils # (1.6-8.9) K/mcL Lymphocytes # (0.6-4.6) K/mcL Monocytes # (0.0-1.3) K/mcL Eosinophils # (0.0-0.6) K/mcL Basophils # (0.0-0.2) K/mcL PT 14.2 H (9.4-12.1) Seconds INR 1.3 D-Dimer < 215 (0-500) ng/mLFEU Sodium (136-145) mEq/L Potassium (3.5-5.1) mEq/L Chloride (98-107) mEq/L Carbon Dioxide (23-29) mEq/L BUN (6-20) mg/dL Creatinine (0.60-1.20) mg/dL Est GFR ( Amer) (> 60) Est GFR (Non-Af Amer) (> 60) BUN/Creatinine Ratio (6-26) Glucose (70-105) mg/dL Est Mean Plasma Glucose 126 mg/dl Hemoglobin A1c 6.0 H ( - 5.6) % Calculated Osmolality (280-300) Calcium (8.6-10.3) mg/dL Troponin I (< 0.04) ng/mL B-Natriuretic Peptide (Less than 100) pg/mL Blood Type A POSITIVE Antibody Screen NEGATIVE Crossmatch See Detail Critical Care Time Critical Care Time: Yes Total Critical Care Time: 30 Attestation: The high probability of a clinically significant, sudden or life threatening deterioration of the [] system(s) required my full and direct attention, intervention and personal management. The aggregate critical care time was [] minutes. This time is in addition to time spent performing reported procedures but includes the following: [] Data Review and interpretation [] Patient assessment and monitoring of vital signs [] Documentation [] Medication orders and management Attestation Statement - Attestation Attestation: I examined this patient and my medical decision-making was reviewed with the Resident Physician. I agree with the documented findings, disposition and treatment plan as described except to the extent set forth below. [id number] time provided Patient arrives with palpitations and exertional dyspnea which she states is similar to when she was diagnosed with atrial fibrillation. EKG reviewed by me upon arrival which does not show atrial fibrillation. She appears in no acute distress on exam
--- NOTE | 2018-03-22 10:30 | Emergency Department Note ---
Disposition Clinical Impression: Fatigue Qualifiers: Fatigue type: unspecified Qualified Code(s): R53.83 - Other fatigue Anemia Qualifiers: Anemia type: unspecified type Qualified Code(s): D64.9 - Anemia, unspecified GI bleed Qualifiers: GI bleed type/associated pathology: melena Qualified Code(s): K92.1 - Melena Disposition: Admitted As Inpatient Condition: Fair Referrals: Naomi Brock CNP [Primary Care Provider] - Lizzie Stallworth [Family Provider] - Forms: ED Satisfaction Letter General Adult HPI - General Chief complaint: ED Shortness of Breath/Dyspnea Stated complaint: BERNIE, chest discomfort Time Seen by Provider: 03/22/18 10:09 Source: patient Mode of arrival: private vehicle Limitations: no limitations Nursing Notes Reviewed: Yes Vital Signs Reviewed: Yes - History of Present Illness HPI Narrative: 52-year-old female who reports that she has had exertional dyspnea and palpitations for the last 3 days. She states that she has a history of atrial fibrillation and she is anticoagulated on Xarelto and also takes Cardizem. She states that the symptoms that she is experiencing is identical to when she was diagnosed with atrial fibrillation. She also notes that she went on a long car ride which was 6 hours in duration 2 days before the symptoms onset. She did note that she gets lower extremity edema after the car ride. She denies having any chest pain and denies any palpitations or dyspnea while at rest. She does not have any ischemic cardiac disease that she is aware of. Other medical problems include hypertension and diabetes. She denies having cough or fever. No other pulmonary pathologies that she is aware of. She does not smoke. Radiation: non-radiation Pain Scale: 0 Consistency: intermittent Improves with: nothing Worsens with: other (exertion) Associated symptoms: Reports: denies other symptoms Treatments Prior to Arrival: none - Related Data Home Medications Medication Instructions Recorded Confirmed Gabapentin [Neurontin] 800 mg PO TID 11/13/17 11/13/17 Lisinopril [Zestril] 10 mg PO DAILY 11/13/17 11/13/17 hydroCHLOROthiazide 25 mg PO DAILY 11/13/17 11/13/17 [Hydrochlorothiazide] Pravastatin Sodium [Pravastatin 10 mg PO HS 03/22/18 03/22/18 Sodium] metFORMIN [Glucophage] 500 mg PO BID 03/22/18 03/22/18 Previous Rx's Medication Instructions Recorded Diltiazem CD (24hr) [Cardizem CD] 120 mg PO DAILY #30 cap.er.24h 11/15/17 Rivaroxaban [Xarelto] 20 mg PO DAILY #30 tablet 11/15/17 Allergies Allergy/AdvReac Type Severity Reaction Status Date / Time No Known Allergies Allergy Verified 03/22/18 12:24 All systems ED: reviewed and negative except as stated. Constitutional: Denies: fever ENT ED: Denies: throat pain Cardiovascular: Reports: palpitations, dyspnea on exertion. Denies: chest pain Respiratory: Reports: dyspnea. Denies: cough Gastrointestinal: Denies: abdominal pain, nausea, vomiting, diarrhea Genitourinary: Denies: dysuria Musculoskeletal: Denies: back pain Integumentary: Denies: rash Neurological: Denies: headache Endocrine: Denies: fatigue Hematological/Lymphatic: Denies: easy bleeding Past Medical History - Past Medical History Medical history: Reports: atrial fibrillation, diabetes, hypertension Psychiatric history: Reports: no psych history - Social History Smoking Status: Never smoker Smokeless Tobacco Status: No Alcohol use: Reports: none Drug use: Reports: none Physical Exam - General Limitations: no limitations General appearance: alert, in no apparent distress - Head Head exam: atraumatic - Eye Eye exam: Present: normal appearance, PERRL - ENT ENT exam: normal exam, normal oropharynx - Neck Neck exam: Present: normal inspection - Chest Chest inspection: Present: normal inspection - Respiratory Respiratory exam: Present: normal lung sounds bilaterally. Absent: respiratory distress - Cardiovascular Cardiovascular exam: Present: regular rate, normal rhythm - Abdominal Exam Abdominal exam: Present: soft, Non-Tender - Extremities Exam Extremities exam: Present: normal inspection, pedal edema (1+ equal bilaterally. Non pitting.) - Back Exam Back exam: Present: normal inspection - Neurological Exam Neurological exam: Present: alert, oriented X3 - Psychiatric Psychiatric exam: Present: normal affect, normal mood - Skin Skin exam: Present: warm, dry Course Course Narrative: Hgb resulted below 7. On further discussion she admits to dark black stool for the last 3-4 days. She has not had this before. No prior colonoscopy or EGD. No abdominal pain. Rectal exam shows Hemoccult positive. Melanotic stool. We will start on protonic drip and transfuse her 2 units of blood. She is hemodynamically stable. Spoke with endoscopy (Dr Calderon) who agreed to see the patient. She discussed potentially doing a bowel prep and doing a scope on Sunday. Will admit to the hospitalist. Accepted by Dr Bertrand. Vital Signs Temperature 98.4 F 03/22/18 10:23 Pulse Rate 87 03/22/18 10:23 Respiratory Rate 20 03/22/18 10:23 Blood Pressure 148/72 03/22/18 10:23 O2 Sat by Pulse Oximetry 100 03/22/18 10:23 Temperature 98.4 F 03/22/18 10:23 Pulse Rate 87 03/22/18 10:23 Respiratory Rate 20 03/22/18 10:23 Blood Pressure 148/72 03/22/18 10:23 O2 Sat by Pulse Oximetry 100 03/22/18 10:23 Oxygen Delivery Oxygen Delivery Room Air Medical Decision Making - Medical Records Medical records reviewed: Yes I reviewed the patient's medical records. - Lab Data Lab results reviewed: Yes I reviewed the patient's lab results. Result diagrams: 03/22/18 10:30 03/22/18 10:30 Lab Results 03/22/18 03/22/18 03/22/18 Range/Units 10:30 10:30 10:30 WBC 3.5 L (4.3-11.1) K/mcL RBC 2.64 L (3.82-4.97) M/mcL Hgb 6.8 L (11.5-15.4) g/dL Hct 21.0 L (35.3-44.9) % MCV 79.5 L (83.0-100.0) fL MCH 25.8 L (28.0-33.3) pg MCHC 32.4 (31.6-35.5) g/dL RDW 16.2 H (11.5-14.5) % Plt Count 194 (140-400) K/mcL MPV 11.4 (9.4-12.4) fL Immature Gran % 0.9 (0-4) % Seg Neutrophils % 61.1 % Lymphocytes % 25.4 % Monocytes % 10.3 % Eosinophils % 1.7 % Basophils % 0.6 % Neutrophils # 2.1 (1.6-8.9) K/mcL Lymphocytes # 0.9 (0.6-4.6) K/mcL Monocytes # 0.4 (0.0-1.3) K/mcL Eosinophils # 0.1 (0.0-0.6) K/mcL Basophils # 0.0 (0.0-0.2) K/mcL PT (9.4-12.1) Seconds INR D-Dimer (0-500) ng/mLFEU Sodium 136 (136-145) mEq/L Potassium 4.2 (3.5-5.1) mEq/L Chloride 104 (98-107) mEq/L Carbon Dioxide 24 (23-29) mEq/L BUN 20 (6-20) mg/dL Creatinine 0.59 L (0.60-1.20) mg/dL Est GFR ( Amer) > 60 (> 60) Est GFR (Non-Af Amer) > 60 (> 60) BUN/Creatinine Ratio 34 H (6-26) Glucose 178 H (70-105) mg/dL Calculated Osmolality 289 (280-300) Calcium 8.6 (8.6-10.3) mg/dL Troponin I < 0.03 (< 0.04) ng/mL B-Natriuretic Peptide 180 H (Less than 100) pg/mL 03/22/18 Range/Units 10:30 WBC (4.3-11.1) K/mcL RBC (3.82-4.97) M/mcL Hgb (11.5-15.4) g/dL Hct (35.3-44.9) % MCV (83.0-100.0) fL MCH (28.0-33.3) pg MCHC (31.6-35.5) g/dL RDW (11.5-14.5) % Plt Count (140-400) K/mcL MPV (9.4-12.4) fL Immature Gran % (0-4) % Seg Neutrophils % % Lymphocytes % % Monocytes % % Eosinophils % % Basophils % % Neutrophils # (1.6-8.9) K/mcL Lymphocytes # (0.6-4.6) K/mcL Monocytes # (0.0-1.3) K/mcL Eosinophils # (0.0-0.6) K/mcL Basophils # (0.0-0.2) K/mcL PT 14.2 H (9.4-12.1) Seconds INR 1.3 D-Dimer < 215 (0-500) ng/mLFEU Sodium (136-145) mEq/L Potassium (3.5-5.1) mEq/L Chloride (98-107) mEq/L Carbon Dioxide (23-29) mEq/L BUN (6-20) mg/dL Creatinine (0.60-1.20) mg/dL Est GFR ( Amer) (> 60) Est GFR (Non-Af Amer) (> 60) BUN/Creatinine Ratio (6-26) Glucose (70-105) mg/dL Calculated Osmolality (280-300) Calcium (8.6-10.3) mg/dL Troponin I (< 0.04) ng/mL B-Natriuretic Peptide (Less than 100) pg/mL - Radiology Data Radiology results reviewed: Yes I reviewed the patient's radiology results. - EKG Data EKG #1 EKG attestation: Yes I reviewed and interpreted this EKG. EKG shows normal: sinus rhythm Rate: normal Rhythm: NSR When compared to previous EKG there are: no significant changes Interpretation: no acute changes
[2018-03-22 10:43] LABS: Basophils % 0.6 %; Eosinophils # 0.1 K/mcL (0.0-0.6); Eosinophils % 1.7 %; Immature Granulocytes % 0.9 % (0-4); Lymphocytes # 0.9 K/mcL (0.6-4.6); Lymphocytes % 25.4 %; Mean Corpuscular HGB Conc 32.4 g/dL (31.6-35.5); Mean Corpuscular Hemoglobin 25.8 pg (28.0-33.3); Mean Corpuscular Volume 79.5 fL (83.0-100.0); Mean Platelet Volume 11.4 fL (9.4-12.4); Monocytes # 0.4 K/mcL (0.0-1.3); Monocytes % 10.3 %; Neutrophils # 2.1 K/mcL (1.6-8.9); Platelet Count 194 K/mcL (140-400); Red Blood Count 2.64 M/mcL (3.82-4.97); Red Cell Distribution Width 16.2 % (11.5-14.5); Segmented Neutrophils % 61.1 %
[2018-03-22 10:51] LABS: INR 1.3; Prothrombin Time 14.2 Seconds (9.4-12.1)
[2018-03-22 11:00] LABS: D-Dimer < 215 ng/mLFEU (0-500)
[2018-03-22 11:10] LABS: BUN/Creatinine Ratio 34 (6-26); Blood Urea Nitrogen 20 mg/dL (6-20); Calcium 8.6 mg/dL (8.6-10.3); Carbon Dioxide 24 mEq/L (23-29); Chloride 104 mEq/L (98-107); Glucose 178 mg/dL (70-105); Osmolality,Calculated 289 (280-300); Potassium 4.2 mEq/L (3.5-5.1); Sodium 136 mEq/L (136-145); Troponin I < 0.03 ng/mL (< 0.04); eGFR For African Americans > 60 (> 60); eGFR For Non-African Americans > 60 (> 60)
[2018-03-22 11:21] LABS: Hemoglobin 6.8 g/dL (11.5-15.4)
[2018-03-22] MEDS ORDERED: Pantoprazole 40 MG VIAL IVP ONE (12:08)
[2018-03-22] MEDS: Pantoprazole 40 MG in 0.9 % Sodium Chloride Mini Bag 100 ML IVC SCH ×3 (13:07→22:26)
[2018-03-22] MEDS ORDERED: Naloxone 0.4 MG/ML INJ IVP PRN (13:17)
[2018-03-22] MEDS ORDERED: *HR* Dextrose 50 % in Water (Syg) 50 ML SYRINGE IVP PRN (13:24)
[2018-03-22] MEDS ORDERED: Dextrose Gel 15 GM/37.5 ML TUBE PO PRN ×2 (13:24)
[2018-03-22] MEDS ORDERED: D5% in Water 1,000 ML IVC PRN (13:24)
[2018-03-22] MEDS ORDERED: 0.9 % Sodium Chloride 1,000 ML IVC SCH (13:30)
--- NOTE | 2018-03-22 13:32 | Internal Med History&Physical ---
Date of Encounter: 03/22/18 Time of Encounter: 13:25 Internal Medicine - H&P: HPI Chief complaint: Rectal bleed Admitted From: Home Plans for Post Hospital Care: Home History of present illness: Ms. Rm is a 52 year old female with history of atrial fibrillation on Xarelto newly diagnosed in November 2017 under care of field support technician Dr. Lujan, hypertension, hyperlipidemia, diabetes mellitus well controlled on OHA but no CAD presented to ER with progressive worsening of exertional dyspnea and palpitations , dizziness for the last 3 days. She also noticed black stool almost on daily basis for last 1 week. In the ER initial lab hemoglobin 6.8, positive Hemoccult,, slight raised BNP but normal troponin and d-dimer and a stable vitals was found. ER physician called on-call surgeon who is covering for endoscopic call with the diagnosis of GI bleed and got advised to admit patient is started to unit blood transfusion and PPI drip and possible endoscopy on Sunday. Your physician called on-call hospitalists for the admission of GI bleed workup and management. Patient never had endoscopy done in the past. Patient denies fever, chills, nausea, vomiting, headache, abdominal pain, urinary complaint, diarrhea, constipation. Past Med Surg Social Fam HX - Past Medical History Medical history: atrial fibrillation, diabetes, hypertension Psychiatric history: no psych history - Social History Smoking Status: Never smoker Smokeless Tobacco Status: No Alcohol use: none Drug use: none Internal Medicine - H&P: Meds Gabapentin [Neurontin] 800 mg PO TID PRN 11/13/17 [History] Lisinopril [Zestril] 10 mg PO DAILY 11/13/17 [History] hydroCHLOROthiazide [Hydrochlorothiazide] 25 mg PO DAILY 11/13/17 [History] Diltiazem CD (24hr) [Cardizem CD] 120 mg PO DAILY #30 cap.er.24h 11/15/17 [Rx] Rivaroxaban [Xarelto] 20 mg PO DAILY #30 tablet 11/15/17 [Rx] Cholecalciferol (Vitamin D3) [Vitamin D3] 10,000 unit PO MOWEFR 03/22/18 [ History] Pravastatin Sodium [Pravastatin Sodium] 10 mg PO HS 03/22/18 [History] metFORMIN [Glucophage] 500 mg PO BID 03/22/18 [History] 3 Allergy/AdvReac Type Severity Reaction Status Date / Time No Known Allergies Allergy Verified 03/22/18 12:24 All Systems PM: as documented above in the HPI. - Constitutional Vitals: Temp Pulse Resp BP Pulse Ox 98.4 F 87 20 148/72 100 03/22/18 10:23 03/22/18 10:23 03/22/18 10:23 03/22/18 10:23 03/22/18 10:23 Exam: General appearance: No acute distress, A&O X 3 Head exam: Atraumatic Eye exam: EOMI, PERRLA ENT exam: Dry oral mucosa Neck nontender, supple Respiratory exam: Clear to auscultation bilaterally Cardiovascular exam: Regular rate and rhythm, no systolic murmur Abdominal exam: Soft, nontender, nondistended, positive bowel sounds Extremities exam: No calf tenderness, no pedal edema Present: Skin-no rash, warm, dry, intact Neurological exam: Alert, awake, oriented 3, CN II-XII intact, no focal deficits. No facial droop. Normal speech. Normal gait. Internal Med - H&P Results - Labs CBC & Chem 7: 03/22/18 10:30 03/22/18 10:30 - Assessment and plan (1) GI bleed Current Visit: Yes Status: Acute Assessment and plan: Active bleed. Symptomatic anemia. Hemoccult positive. Patient has been on surround to since November 2017 due to new onset of A. fib. No blood thinner. Keep patient in a stepdown ICU for close monitoring. Nothing by mouth, IV fluid normal saline 100 mL per hour, serial hemoglobin monitoring, PPI drip, SCDs. ER physician already consulted on-call endoscopy surgeon and plan for endoscope the on Sunday. 2 unit blood transfusion ordered by ER physician. Qualifiers: GI bleed type/associated pathology: unspecified gastrointestinal hemorrhage type Qualified Code(s): K92.2 - Gastrointestinal hemorrhage, unspecified (2) A-fib Current Visit: Yes Status: Chronic Assessment and plan: At present no A. fib. Normal heart rate. Continue rate control medicine but Xarelto on hold. Discuss with field support technician about anticoagulation choices upon discharge Qualifiers: Atrial fibrillation type: chronic Qualified Code(s): I48.2 - Chronic atrial fibrillation (3) Diabetes mellitus Current Visit: Yes Status: Chronic Assessment and plan: Accu-Chek, SSI coverage. A1c. Qualifiers: Diabetes mellitus type: type 2 Diabetes mellitus penitentiary insulin use: without remote computer terminal operator use Diabetes mellitus complication status: without complication Qualified Code(s): E11.9 - Type 2 diabetes mellitus without complications (4) Hypertension Current Visit: Yes Status: Acute Assessment and plan: Close monitoring. Home medicine. When necessary hydralazine. Qualifiers: Hypertension type: essential hypertension Qualified Code(s): I10 - Essential (primary) hypertension (5) DVT prophylaxis Current Visit: Yes Status: Acute Assessment and plan: SCDs. - Time Spent With Patient Total time spent is greater than 50% in coordination of care (as documented) at patient's floor/unit and/or counseling patient: 25 - 35 minutes
--- NOTE | 2018-03-22 13:33 | General Surgery Consult Note ---
<Mikhail Cooper - Last Filed: 03/23/18 05:04> Date of Encounter: 03/23/18 Time of Encounter: 12:50 Assessment and Plan (1) GI bleed Current Visit: Yes Status: Acute Patient hemoccult positive for blood. Patient was anemic with a hgb of 6.8. Not tachycardic. BP range of 96-148/67-72. Last solid PO intake was this morning. - continue to trend H/H and transfuse as needed. - Continue protonix drip. - Continue IV fluids. - Plan for EGD and colonoscopy this Sunday. - Clear liquid diet for today and tomorrow. - Bowel prep tomorrow. Qualifiers: GI bleed type/associated pathology: melena Qualified Code(s): K92.1 - Melena History of Present Illness Consult date: 03/22/18 Requesting physician: Jerome Kebede History of present illness: Patient is a 52-year-old female with past medical history of atrial fibrillation (on xarelto), type 2 diabetes mellitus, and hypertension presented to the ED for exertional dyspnea and palpitations. Patient says that 3 days ago she started becoming short of breath when she would exert herself. Denies shortness of breath at rest. She denies any chest pain. Admits to having palpitations when she exerts herself similar to the time when she was diagnosed with atrial fibrillation back in November 2017. While in the ED labs showed patient was anemic with hemoglobin of 6.8 (baseline 9.7-10.7). Rectal exam showed patient was Hemoccult positive. Upon further questioning patient admitted to having dark black stool for the past 3-4 days, admitting that this has never happened before. She has never had a colonoscopy or EGD done before. She denies any abdominal pain. She does admit to some constipation for the past 2 weeks going 3 days between having bowel movements. She denies any nausea or vomiting. Admits to weakness and dizziness when she exerts herself. Denies fever or chills. Patient was subsequently placed on Protonix and admitted to medicine for further evaluation. Surgery was consulted for GI bleed. Past Med Surg Social Fam HX - Past Medical History Medical history: atrial fibrillation, diabetes, hypertension Psychiatric history: no psych history - Social History Smoking Status: Never smoker Smokeless Tobacco Status: No Alcohol use: none Drug use: none - Family History Mother Hx Family Cardiac Disorders: Yes Hx Family Endocrine Disorder: Yes Father Hx Family Cardiac Disorders: Yes Hx Family Endocrine Disorder: Yes Medications and Allergies Gabapentin [Neurontin] 800 mg PO TID PRN 11/13/17 [History] Lisinopril [Zestril] 10 mg PO DAILY 11/13/17 [History] hydroCHLOROthiazide [Hydrochlorothiazide] 25 mg PO DAILY 11/13/17 [History] Diltiazem CD (24hr) [Cardizem CD] 120 mg PO DAILY #30 cap.er.24h 11/15/17 [Rx] Rivaroxaban [Xarelto] 20 mg PO DAILY #30 tablet 11/15/17 [Rx] Cholecalciferol (Vitamin D3) [Vitamin D3] 10,000 unit PO MOWEFR 03/22/18 [ History] Pravastatin Sodium [Pravastatin Sodium] 10 mg PO HS 03/22/18 [History] metFORMIN [Glucophage] 500 mg PO BID 03/22/18 [History] 3 Allergy/AdvReac Type Severity Reaction Status Date / Time No Known Allergies Allergy Verified 03/22/18 12:24 Review of Systems All systems PM: The remainder of the systems were reviewed and are negative - Constitutional weakness, no fever(s), no headache(s) - Cardiovascular dyspnea, edema, no chest pain, no chest pain at rest, no chest pain with activity - Respiratory dyspnea on exertion - Gastrointestinal change in bowel habits, change in stool character, constipation, no abdominal pain, no diarrhea, no nausea, no vomiting - Neurological dizziness, weakness, no headache(s) - Psychiatric as per HPI General Surgery Exam Initial Vital Signs Temp Pulse Resp BP Pulse Ox 98.4 F 87 20 148/72 100 03/22/18 10:23 03/22/18 10:23 03/22/18 10:23 03/22/18 10:23 03/22/18 10:23 - General physical appearance well developed, well nourished, no distress, no pain, obese - Neck no masses, no bruits, trachea midline, no lymphadectomy, no venous distension - Respiratory normal expansion, normal respiratory effort, clear to percussion, clear to auscultation - Cardiovascular Cardiovascular exam: Present: RRR, 15, 16 - Abdomen Abdomen general surgery: Present: bowel sounds present, soft, non tender. Absent: guarding, rebound Hernia: Present: none - Integumentary Integumentary general surgery: Present: warm and dry, no abnormal pigmentation - Musculoskeletal Present: normal posture - Psychiatric Psychiatric general surgery: Present: appropriate, oriented to person, oriented to place, oriented to time, speech is normal, memory intact - Additional Findings Extremities: +2/4 doarsalis pedis and posterior tibial pulses b/l, no pedal edema, no calf tenderness, begative Isamar's sign b/l CV: No JVD, no murmurs appreciated in carotids b/l. Exam Initial Vital Signs Temp Pulse Resp BP Pulse Ox 98.4 F 87 20 148/72 100 03/22/18 10:23 03/22/18 10:23 03/22/18 10:23 03/22/18 10:23 03/22/18 10:23 Results - Labs 03/23/18 00:09 03/23/18 00:09 Abnormal lab results WBC 3.5 K/mcL (4.3-11.1) L 03/22/18 10:30 RBC 2.64 M/mcL (3.82-4.97) L 03/22/18 10:30 Hgb 6.8 g/dL (11.5-15.4) L 03/22/18 10:30 Hct 21.0 % (35.3-44.9) L 03/22/18 10:30 MCV 79.5 fL (83.0-100.0) L 03/22/18 10:30 MCH 25.8 pg (28.0-33.3) L 03/22/18 10:30 RDW 16.2 % (11.5-14.5) H 03/22/18 10:30 PT 14.2 Seconds (9.4-12.1) H 03/22/18 10:30 Creatinine 0.59 mg/dL (0.60-1.20) L 03/22/18 10:30 BUN/Creatinine Ratio 34 (6-26) H 03/22/18 10:30 Glucose 178 mg/dL (70-105) H 03/22/18 10:30 B-Natriuretic Peptide 180 pg/mL (Less than 100) H 03/22/18 10:30 All other labs normal. Consult Discharge Plan - Plan Referrals: Naomi Brock CNP [Primary Care Provider] - Lizzie Stallworth [Family Provider] - <Selene Calderon - Last Filed: 03/23/18 14:58> Date of Encounter: 03/23/18 Assessment and Plan (1) Anemia Current Visit: Yes Status: Acute discussed with patient anemia and melena will plan EGD and colonscopy sunday, risks and benefits discussed and she wishes to proceed clears today and bowel prep npo ok po meds at midnight trend Hb Qualifiers: Anemia type: unspecified type Qualified Code(s): D64.9 - Anemia, unspecified (2) Hypertension Current Visit: Yes Status: Acute continue home medication Qualifiers: Hypertension type: essential hypertension Qualified Code(s): I10 - Essential (primary) hypertension (3) A-fib Current Visit: Yes Status: Chronic hold xarelto currently rate controlled Qualifiers: Atrial fibrillation type: chronic Qualified Code(s): I48.2 - Chronic atrial fibrillation (4) Diabetes mellitus Current Visit: Yes Status: Chronic management per hospitalist Qualifiers: Diabetes mellitus type: type 2 Diabetes mellitus alf insulin use: without long term acute care registered nurse use Diabetes mellitus complication status: without complication Qualified Code(s): E11.9 - Type 2 diabetes mellitus without complications History of Present Illness Reason for consult: endoscopy History of present illness: Patient is a 52 yo female with no history of egd or previous colonoscopy. She presented to the hospital with melanotic stools for ~4 days. This occurred wiht every bowel movement. She denies any abdominal pain, nausea or emesis. She has no hematochezia. She has no heartburn or reflux. She denies issues with diarrhea and will have constipation once in a while. There has been no recent weight loss. No [facility] colorectal cancer. She is on xeralto for afib Past Med Surg Social Fam HX - Past Medical History Source: patient Medical history: hyperlipidemia, other (morbid obesity, neuropathy) - Past Surgical History Surgical History: other (tubal ligation) Review of Systems All systems PM: reviewed and no additional remarkable complaints except as stated All systems PM: The remainder of the systems were reviewed and are negative General Surgery Exam Initial Vital Signs Temp Pulse Resp BP Pulse Ox 98.4 F 87 20 148/72 100 03/22/18 10:23 03/22/18 10:23 03/22/18 10:23 03/22/18 10:23 03/22/18 10:23 - General physical appearance well developed, well nourished, no distress, no pain, obese - Eyes PERRL, normal ocular movement - ENT normal mucosa, normocephalic - Neck trachea midline - Respiratory normal expansion, clear to auscultation - Cardiovascular Cardiovascular exam: Present: irregular rhythm - Abdomen Abdomen general surgery: Present: bowel sounds present, soft, non tender. Absent: distended, guarding, rebound - Integumentary Integumentary general surgery: Present: warm and dry, no abnormal pigmentation - Neurologic Present: CN 2-12 grossly intact - Musculoskeletal Present: normal posture - Psychiatric Psychiatric general surgery: Present: A&Ox3, speech is normal Exam Initial Vital Signs Temp Pulse Resp BP Pulse Ox 98.4 F 87 20 148/72 100 03/22/18 10:23 03/22/18 10:23 03/22/18 10:23 03/22/18 10:23 03/22/18 10:23 Results - Labs 03/23/18 00:09 03/23/18 00:09 Abnormal lab results WBC 4.1 K/mcL (4.3-11.1) L 03/23/18 00:09 RBC 2.84 M/mcL (3.82-4.97) L 03/23/18 00:09 Hgb 7.7 g/dL (11.5-15.4) L 03/23/18 00:09 Hct 23.2 % (35.3-44.9) L 03/23/18 00:09 MCV 81.7 fL (83.0-100.0) L 03/23/18 00:09 MCH 27.1 pg (28.0-33.3) L 03/23/18 00:09 RDW 15.6 % (11.5-14.5) H 03/23/18 00:09 PT 14.2 Seconds (9.4-12.1) H 03/22/18 10:30 Chloride 109 mEq/L (98-107) H 03/23/18 00:09 Carbon Dioxide 22 mEq/L (23-29) L 03/23/18 00:09 Creatinine 0.56 mg/dL (0.60-1.20) L 03/23/18 00:09 Glucose 114 mg/dL (70-105) H 03/23/18 00:09 POC Glucose 127 mg/dL (70-99) H 03/23/18 05:40 Hemoglobin A1c 6.0 % (-5.6) H 03/22/18 10:30 Calcium 8.5 mg/dL (8.6-10.3) L 03/23/18 00:09 B-Natriuretic Peptide 180 pg/mL (Less than 100) H 03/22/18 10:30 Diabetes panel 03/23/18 Range/Units 00:09 Sodium 139 (136-145) mEq/L Potassium 3.6 (3.5-5.1) mEq/L Chloride 109 H (98-107) mEq/L Carbon Dioxide 22 L (23-29) mEq/L BUN 14 (6-20) mg/dL Creatinine 0.56 L (0.60-1.20) mg/dL Glucose 114 H (70-105) mg/dL Calcium 8.5 L (8.6-10.3) mg/dL Calcium panel 03/23/18 Range/Units 00:09 Calcium 8.5 L (8.6-10.3) mg/dL Pituitary panel 03/23/18 Range/Units 00:09 Sodium 139 (136-145) mEq/L Potassium 3.6 (3.5-5.1) mEq/L Chloride 109 H (98-107) mEq/L Carbon Dioxide 22 L (23-29) mEq/L BUN 14 (6-20) mg/dL Creatinine 0.56 L (0.60-1.20) mg/dL Glucose 114 H (70-105) mg/dL Calcium 8.5 L (8.6-10.3) mg/dL Adrenal panel 03/23/18 Range/Units 00:09 Sodium 139 (136-145) mEq/L Potassium 3.6 (3.5-5.1) mEq/L Chloride 109 H (98-107) mEq/L Carbon Dioxide 22 L (23-29) mEq/L BUN 14 (6-20) mg/dL Creatinine 0.56 L (0.60-1.20) mg/dL Glucose 114 H (70-105) mg/dL Calcium 8.5 L (8.6-10.3) mg/dL All other labs normal. Vital Signs Temp Pulse Resp BP Pulse Ox 03/23/18 10:33 98.2 F 64 16 139/79 100 03/23/18 09:24 99 03/23/18 07:50 98.3 F 69 15 138/72 99 03/23/18 04:03 97.7 F 67 18 161/76 98 03/23/18 00:41 97.9 F 72 17 131/68 97 03/22/18 20:58 99.3 F 71 18 125/69 97 03/22/18 18:51 98.2 F 78 14 146/70 99 03/22/18 18:36 98.2 F 73 16 131/71 98 03/22/18 16:32 98.1 F 70 16 138/75 97 Intake and Output 03/22/18 03/23/18 03/23/18 23:59 07:59 15:59 Intake Total 1191 / 1191 1100 / 1100 1160 / 1160 Output Total 350 / 350 Balance 1191 / 1191 1100 / 1100 810 / 810 Intake: IV Fluids 200 / 200 1100 / 1100 200 / 200 0.9 % Sodium Chloride 1,000 ML 1000 / 1000 @ 75 mls/hr IVC .[id number] NEO Rx #:[id number] Protonix 40 MG In 0.9 % Sodium 200 / 200 100 / 100 200 / 200 Chloride (Mini-Bag +) 100 ML @ 20 mls/hr IVC .Q5H NEO Rx#: [id number] Oral 960 / 960 Blood Product 991 / 991 Rbcs Leuko Poor As-1 Unit 350 / 350 [id number] Rbcs Leuko Poor As-1 Unit 291 / 291 [id number] Output: Urine 350 / 350 Other: Meal Lunch Percent of Meal Consumed 100% # Voids 1 Weight 175.143 kg Blood Glucose* 113 127 118 Patient Weight 03/23/18 23:59 Weight 175.143 kg - Attending Attestation I examined this patient and my medical decision-making was reviewed with the Resident Physician. I agree with the documented findings, disposition and treatment plan as described except to the extent set forth below.
[2018-03-22 14:49] LABS: Estimated Average Glucose 126 mg/dl
[2018-03-22] MEDS: 0.9 % Sodium Chloride 1,000 ML IVC SCH (15:13)
[2018-03-22] MEDS: Acetaminophen 325 MG TABLET PO PRN ×2 (15:13→22:25)
[2018-03-22] MEDS: Insulin LISPRO 300 UNITS/3 ML VIAL SQ SCH (17:36)
[2018-03-22 18:01] LABS: Hematocrit 24.7 % (35.3-44.9); Hemoglobin 7.6 g/dL (11.5-15.4)
[2018-03-22 22:21] LABS: Hematocrit 23.9 % (35.3-44.9); Hemoglobin 7.9 g/dL (11.5-15.4)
[2018-03-23] MEDS: Insulin LISPRO 300 UNITS/3 ML VIAL SQ SCH ×4 (00:19→17:30)
[2018-03-23 00:35] LABS: Basophils % 0.5 %; Eosinophils # 0.1 K/mcL (0.0-0.6); Eosinophils % 2.7 %; Hematocrit 23.2 % (35.3-44.9); Hemoglobin 7.7 g/dL (11.5-15.4); Immature Granulocytes % 0.5 % (0-4); Lymphocytes # 1.3 K/mcL (0.6-4.6); Lymphocytes % 30.2 %; Mean Corpuscular HGB Conc 33.2 g/dL (31.6-35.5); Mean Corpuscular Hemoglobin 27.1 pg (28.0-33.3); Mean Corpuscular Volume 81.7 fL (83.0-100.0); Mean Platelet Volume 10.5 fL (9.4-12.4); Monocytes # 0.5 K/mcL (0.0-1.3); Monocytes % 12.1 %; Neutrophils # 2.2 K/mcL (1.6-8.9); Platelet Count 168 K/mcL (140-400); Red Blood Count 2.84 M/mcL (3.82-4.97); Red Cell Distribution Width 15.6 % (11.5-14.5)
[2018-03-23 00:55] LABS: BUN/Creatinine Ratio 25 (6-26); Blood Urea Nitrogen 14 mg/dL (6-20); Calcium 8.5 mg/dL (8.6-10.3); Carbon Dioxide 22 mEq/L (23-29); Chloride 109 mEq/L (98-107); Glucose 114 mg/dL (70-105); Osmolality,Calculated 289 (280-300); Potassium 3.6 mEq/L (3.5-5.1); Sodium 139 mEq/L (136-145); eGFR For African Americans > 60 (> 60); eGFR For Non-African Americans > 60 (> 60)
[2018-03-23] MEDS: Pantoprazole 40 MG in 0.9 % Sodium Chloride Mini Bag 100 ML IVC SCH ×4 (03:45→21:13)
[2018-03-23] MEDS: 0.9 % Sodium Chloride 1,000 ML IVC SCH ×4 (03:45→18:13)
[2018-03-23] MEDS ORDERED: Gabapentin 300 MG CAPSULE PO ONE (03:55)
[2018-03-23] MEDS: Diltiazem CD (24hr) 120 MG CAPSULE PO SCH (09:17)
[2018-03-23] MEDS ORDERED: Polyethylene Glycol 3350 255 GM POWDER PO ONE (09:17)
[2018-03-23] MEDS: Sucralfate 1 GM TABLET PO SCH ×4 (10:13→21:12)
--- NOTE | 2018-03-23 14:26 | Internal Med Progress Note ---
Date of Encounter: 03/23/18 Time of Encounter: 14:23 - Assessment and plan (1) Acute blood loss anemia Current Visit: Yes Status: Acute Assessment and plan: Hb improved to 7.6 with 2 U PRBC cont close monitoring Q12hr H/H scheduled for EGD / Colonoscopy in AM (2) GI bleed Current Visit: Yes Status: Acute Assessment and plan: Possible upper GI bleed cont close monitoring con Protonix gtt NPO after mid night Surgery on board EGD and Colonoscopy in AM Qualifiers: GI bleed type/associated pathology: unspecified gastrointestinal hemorrhage type Qualified Code(s): K92.2 - Gastrointestinal hemorrhage, unspecified (3) A-fib Current Visit: Yes Status: Chronic Assessment and plan: Rate controlled on Cardizem Held Xarelto for anti coag due to GI bleed Qualifiers: Atrial fibrillation type: chronic Qualified Code(s): I48.2 - Chronic atrial fibrillation (4) Diabetes mellitus Current Visit: Yes Status: Chronic Assessment and plan: Accu-Chek, SSI coverage. 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 Home medicine. When necessary hydralazine. Qualifiers: Hypertension type: essential hypertension Qualified Code(s): I10 - Essential (primary) hypertension (6) DVT prophylaxis Current Visit: Yes Status: Acute Assessment and plan: SCDs. - Time Spent With Patient Total time spent is greater than 50% in coordination of care (as documented) at patient's floor/unit and/or counseling patient: - Subjective Interval history: Ms. 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 She also noticed black tarry stool from last 1 week. In the ER initial lab hemoglobin 6.8, positive Hemoccult,, slight raised BNP but normal troponin and d-dimer and a stable vitals was found. ER physician called on-call surgeon who is covering for endoscopic call with the diagnosis of GI bleed and got advised to admit patient is started to unit blood transfusion and PPI drip and possible endoscopy on Sunday. Pt stated she still has dark colored stools. Denied any CP / SOB. Feels little better today. - Constitutional Vitals: Temp Pulse Resp BP Pulse Ox 98.2 F 64 16 139/79 100 03/23/18 10:33 03/23/18 10:33 03/23/18 10:33 03/23/18 10:33 03/23/18 10:33 General appearance: Present: A&O X 3, no acute distress, answers questions appropriately - Head Head exam: Present: atraumatic, normal inspection - Neck Neck exam general surgery: Present: supple - Respiratory Respiratory exam: Present: decreased breath sounds. Absent: rales, respiratory distress, rhonchi, wheezes - Cardiovascular Cardiovascular exam: Present: +S1, +S2. Absent: tachycardia - GI/Abdominal GI/Abdominal exam: Present: normal bowel sounds, soft. Absent: rebound, rigid, tenderness - Extremities Exam Extremities exam: Absent: calf tenderness, pedal edema, tenderness - Back Exam Back exam: Absent: CVA tenderness (L), CVA tenderness (R) - Neurological Exam Neurological exam: Present: alert, oriented X3 - Psychiatric Psychiatric exam: Present: normal affect, normal mood - Skin Skin exam: Absent: rash Internal Medicine: Result - Labs CBC & Chem 7: 03/23/18 00:09 03/23/18 00:09 Labs: Short CBC 03/22/18 03/22/18 03/23/18 Range/Units 17:48 21:54 00:09 WBC 4.1 L (4.3-11.1) K/mcL Hgb 7.6 L 7.9 L 7.7 L (11.5-15.4) g/dL Hct 24.7 L 23.9 L 23.2 L (35.3-44.9) % Plt Count 168 (140-400) K/mcL Neutrophils # 2.2 (1.6-8.9) K/mcL BMP 03/23/18 00:09 Sodium 139 Potassium 3.6 Chloride 109 H Carbon Dioxide 22 L BUN 14 Creatinine 0.56 L Glucose 114 H Calcium 8.5 L Cardiac Enzymes 03/22/18 03/23/18 Range/Units 17:48 00:09 Troponin I < 0.03 < 0.03 (< 0.04) ng/mL - ABG Interpretation ABG results: PT/INR, D-dimer PT 14.2 Seconds (9.4-12.1) H 03/22/18 10:30 D-Dimer < 215 ng/mLFEU (0-500) 03/22/18 10:30 - VTE Documentation of Mechanical Device: Intermittent pneumatic compression device Consult Discharge Plan - Plan Referrals: Naomi Brock CNP [Primary Care Provider] - Lizzie Stallworth [Family Provider] -
[2018-03-23 17:03] LABS: Hematocrit 28.2 % (35.3-44.9); Hemoglobin 9.1 g/dL (11.5-15.4)
[2018-03-23] MEDS: Gabapentin 400 MG CAPSULE PO SCH (21:12)
[2018-03-24] MEDS: Insulin LISPRO 300 UNITS/3 ML VIAL SQ SCH ×4 (01:46→16:39)
[2018-03-24] MEDS: Pantoprazole 40 MG in 0.9 % Sodium Chloride Mini Bag 100 ML IVC SCH (03:25)
[2018-03-24] MEDS: Diltiazem CD (24hr) 120 MG CAPSULE PO SCH (07:38)
[2018-03-24] MEDS: Sucralfate 1 GM TABLET PO SCH ×4 (07:38→20:48)
[2018-03-24] MEDS: Gabapentin 400 MG CAPSULE PO SCH ×2 (07:38→20:48)
[2018-03-24] MEDS: 0.9 % Sodium Chloride 1,000 ML IVC SCH (07:44)
--- NOTE | 2018-03-24 08:19 | Anesthesia Evaluation PreOp ---
Date of Encounter: 03/24/18 Time of Encounter: 08:30 - Past History Planned Operation: Double Endo Cardiac History: HTN, Hyperlipidemia, Arrhythmia (Hx AFib/Flutter currently sinus rate controlled, Cardizem today 0738), Other (Anemia) Pulmonary History: Denies Any Significant HX GROUND SUPPORT EQUIPMENT FITTER History: Denies Any Significant HX Other Medical History: Diabetes Type II, Other (Morbid Obesity) Anesthesia History: No Prior Anesthetic Complications : No Alcohol Use: none Drug use: none Medications and Allergies Gabapentin [Neurontin] 800 mg PO TID PRN 11/13/17 [History] Lisinopril [Zestril] 10 mg PO DAILY 11/13/17 [History] hydroCHLOROthiazide [Hydrochlorothiazide] 25 mg PO DAILY 11/13/17 [History] Diltiazem CD (24hr) [Cardizem CD] 120 mg PO DAILY #30 cap.er.24h 11/15/17 [Rx] Rivaroxaban [Xarelto] 20 mg PO DAILY #30 tablet 11/15/17 [Rx] Cholecalciferol (Vitamin D3) [Vitamin D3] 10,000 unit PO MOWEFR 03/22/18 [ History] Pravastatin Sodium [Pravastatin Sodium] 10 mg PO HS 03/22/18 [History] metFORMIN [Glucophage] 500 mg PO BID 03/22/18 [History] 3 Allergy/AdvReac Type Severity Reaction Status Date / Time No Known Allergies Allergy Verified 03/22/18 12:24 - Meds/Allergy Pre-op Review Medications Reviewed: Yes Allergies Reviewed: Yes Beta Blockers on Current Med List: No Anesthesia Results - Labs 03/23/18 16:54 03/23/18 00:09 - Imaging EKG: report reviewed (SR) Additional studies: ECHO EF 60% 2018 Anesthesia Exam Vital Signs/O2 Sat/Glucose, Most Current Temp Pulse Resp BP Pulse Ox 03/24/18 07:49 100 03/24/18 07:35 98.0 F 61 16 154/79 100 03/24/18 04:29 97.7 F 59 18 128/71 100 Height: 5'8 Weight: 381 lbs NPO (# of Hours): MN Pain Scale: 0 - HEENT Pupil (Motor): Pupils equal, EOMI Mallampati: III Oral Opening: Less than or equal to 3 - GROUND SUPPORT EQUIPMENT FITTER LOC: Oriented GROUND SUPPORT EQUIPMENT FITTER Motor: Normal RUE, Normal LUE, Normal RLE, Normal LLE, Normal Face GROUND SUPPORT EQUIPMENT FITTER Sensory: Normal: RUE, LUE, RLE, LLE, Face - Cardiac Rhythm: Regular Murmur: None JVD: No Carotid Bruit: No - Pulmonary Breath Sounds: bilateral Clear Respiratory Effort: Symmetrical Anesthesia Assess/Plan ASA Score: 3 (HTN Morbid Obesity DM) Modified [place] Scale for Level of Consciousness: Cooperative, oriented, and tranquil Anesthetic Plan: MAC Monitoring Plan: Standard Monitors Recovery Plan: Other (Discussed MAC, possible GA, agrees to proceed)
[2018-03-24 08:27] LABS: Basophils % 0.6 %; Eosinophils # 0.2 K/mcL (0.0-0.6); Eosinophils % 3.5 %; Hematocrit 28.7 % (35.3-44.9); Immature Granulocytes % 0.6 % (0-4); Lymphocytes # 1.1 K/mcL (0.6-4.6); Lymphocytes % 21.7 %; Mean Corpuscular HGB Conc 31.4 g/dL (31.6-35.5); Mean Corpuscular Hemoglobin 26.3 pg (28.0-33.3); Mean Corpuscular Volume 83.9 fL (83.0-100.0); Mean Platelet Volume 10.8 fL (9.4-12.4); Monocytes # 0.6 K/mcL (0.0-1.3); Monocytes % 12.1 %; Neutrophils # 3.2 K/mcL (1.6-8.9); Nucleated Red Blood Cells 1.9 /100 WBC (0); Platelet Count 206 K/mcL (140-400); Red Blood Count 3.42 M/mcL (3.82-4.97); Red Cell Distribution Width 15.5 % (11.5-14.5); Segmented Neutrophils % 61.5 %
[2018-03-24] MEDS ORDERED: Lidocaine -MPF 2% 2 ML VIAL ONE (09:11)
[2018-03-24] MEDS ORDERED: Ondansetron 4 MG/2 ML VIAL ONE (09:11)
[2018-03-24] MEDS ORDERED: Propofol 500 MG/50 ML INFUS..BTL ONE ×2 (09:11→09:47)
[2018-03-24] MEDS ORDERED: *HR* FentaNYL (PF) 100 MCG/2 ML VIAL ONE (09:12)
[2018-03-24] MEDS ORDERED: Simethicone 40 MG/0.6 ML MLS IR ONE (09:31)
--- NOTE | 2018-03-24 09:55 | General Surgery Progress Note ---
Date of Encounter: 03/24/18 Time of Encounter: 07:00 - Assessment and Plan (1) GI bleed Current Visit: Yes Status: Acute Patient hemoccult positive for blood. Patient was anemic on arrival with a hgb of 6.8. On clear liquid diet and started on bowel prep yesterday. Hgb stable at 9.0 (yesterday at 9.1). - EGD and colonoscopy was performed earlier today and showed no visible source of bleeding. Some polyps were found in the recutm and one in the transverse colon. They were resected and sent for pathology. Pathology results will be discussed with patient in outpatient clinic in 2 weeks, for which we can discuss if further evaluation will be necessary. Surgery will sign off on this patient for now. Qualifiers: GI bleed type/associated pathology: melena Qualified Code(s): K92.1 - Melena Subjective Narrative: Patient denies any nausea or vomiting. Denies any chest pain or shortness of breath. Denies any abdominal pain. Denies any fever or chills. Admits to bowel movement but denies any foreign stool. Denies any melena or hematochezia. Denies any headache, dizziness, or lightheadedness. Objective VITAL SIGNS: Reviewed. See [facility] GENERAL: no apparent distress. HEENT: [Normocephalic, PER, EOMi, oropharynx pink/moist, no JVD noted.] CV: b/l rad pulses 2+, RRR, no murmurs or gallops, no JVD RESPIRATORY: CTAB without wheezes, rales, or rhonchi ABD: soft, non-tender, no rebound/guarding/rigidity, no peritoneal signs. Normal bowel sounds. EXTREMITY: grossly normal motor function, no pedal edema, peripheral pulses 2+ b /l NEUROLOGIC EXAM: AOx3, obeys commands, no speech deficits. PSYCHIATRIC: normal mood and affect SKIN: no gross lesions, rashes, or skin changes Vital Signs - Last 8 Hours Temp Pulse Resp BP Pulse Ox 03/24/18 08:50 97.8 F 87 16 139/111 99 03/24/18 07:49 100 03/24/18 07:35 98.0 F 61 16 154/79 100 03/24/18 04:29 97.7 F 59 18 128/71 100 Intake and Output 05/03/24/18 03/24/18 23:59 07:59 15:59 Intake Total 2720 / 2720 1100 / 1100 Balance 2720 / 2720 1100 / 1100 Intake: IV Fluids 2100 / 2100 1100 / 1100 0.9 % Sodium Chloride 1,000 ML 2000 / 2000 1000 / 1000 @ 75 mls/hr IVC .[id number] NEO Rx #:[id number] Protonix 40 MG In 0.9 % Sodium 100 / 100 100 / 100 Chloride (Mini-Bag +) 100 ML @ 20 mls/hr IVC .Q5H NEO Rx#: [id number] Oral 620 / 620 0 / 0 Other: Meal Dinner NPO Percent of Meal Consumed 20% 0% Stool Size Moderate Moderate Stool Consistency liquid liquid Stool Color Black # Voids 1 2 # Bowel Movements 3 3 Weight 173.26 kg Blood Glucose* 111 107 Patient Weight 03/24/18 23:59 Weight 173.26 kg - Labs 03/24/18 07:32 03/23/18 00:09 - VTE Documentation of Mechanical Device: Intermittent pneumatic compression device Consult Discharge Plan - Plan Referrals: Naomi Brock CNP [Primary Care Provider] - Lizzie Stallworth [Family Provider] -
--- NOTE | 2018-03-24 10:16 | Anesthesia Evaluation Post Op ---
Date of Encounter: 03/24/18 Time of Encounter: 10:20 - Vital Signs Vital Signs: Vital Signs/O2 Sat/Glucose, Most Current Temp Pulse Resp BP Pulse Ox 03/24/18 08:50 97.8 F 87 16 139/111 99 03/24/18 07:49 100 03/24/18 07:35 98.0 F 61 16 154/79 100 - Lungs Lungs: Clear Ascult./Percussion - Airway Airway: Non-obstructed - Cardiovascular Regular Rate - Mental Status Mental Status: Alert & Oriented, Answers Appropriately - Pain Pain Scale: 0 - Nausea Vomiting Nausea Vomiting: Not Present - Hydration Hydration: NPO - Discharge PostOp Status: Transfer Patient to floor
--- NOTE | 2018-03-24 13:40 | Internal Med Progress Note ---
Date of Encounter: 03/24/18 Time of Encounter: 13:20 - Assessment and plan (1) Acute blood loss anemia Current Visit: Yes Status: Acute Assessment and plan: Hb improved to 9.0 with 2 U PRBC cont close monitoring Reviewed EGD - showed small hiatal hernia, erythematous mucosa in Antrum noticed - no bleeding ulcers Colonscopy showed -Non thrombosed ext hemorrhids, multiple rectal polyps and one small transverse colon polyp started on regular diet Will check Iron studies (2) GI bleed Current Visit: Yes Status: Acute Assessment and plan: d/c Protonix gtt started on PO PPI BID Carafate PO Qualifiers: GI bleed type/associated pathology: unspecified gastrointestinal hemorrhage type Qualified Code(s): K92.2 - Gastrointestinal hemorrhage, unspecified (3) A-fib Current Visit: Yes Status: Chronic Assessment and plan: Rate controlled on Cardizem Held Xarelto for anti coag due to GI bleed Qualifiers: Atrial fibrillation type: chronic Qualified Code(s): I48.2 - Chronic atrial fibrillation (4) Diabetes mellitus Current Visit: Yes Status: Chronic Assessment and plan: Accu-Chek, SSI coverage. Qualifiers: Diabetes mellitus type: type 2 Diabetes mellitus assisted insulin use: without long term care administrator use Diabetes mellitus complication status: without complication Qualified Code(s): E11.9 - Type 2 diabetes mellitus without complications (5) Hypertension Current Visit: Yes Status: Acute Assessment and plan: Close monitoring. Home medicine. When necessary hydralazine. Qualifiers: Hypertension type: essential hypertension Qualified Code(s): I10 - Essential (primary) hypertension (6) DVT prophylaxis Current Visit: Yes Status: Acute Assessment and plan: SCDs. - Time Spent With Patient Total time spent is greater than 50% in coordination of care (as documented) at patient's floor/unit and/or counseling patient: - Subjective Interval history: Ms. 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 She also noticed black tarry stool from last 1 week. In the ER initial lab hemoglobin 6.8, positive Hemoccult,, slight raised BNP but normal troponin and d-dimer and a stable vitals was found. Pt was admitted for acute symptomatic anemia and gave 2 U blood transfusion and started on PPI drip. She just came back from EGD and Colonoscopy. Denied any CP / SOB. Feels much better today. - Constitutional Vitals: Temp Pulse Resp BP Pulse Ox 97.7 F 67 16 164/76 100 03/24/18 11:32 03/24/18 13:10 03/24/18 13:10 03/24/18 13:10 03/24/18 13:10 General appearance: Present: A&O X 3, no acute distress, answers questions appropriately - Head Head exam: Present: atraumatic, normal inspection - Neck Neck exam general surgery: Present: supple - Respiratory Respiratory exam: Present: decreased breath sounds. Absent: rales, respiratory distress, rhonchi, wheezes - Cardiovascular Cardiovascular exam: Present: RRR, +S1, +S2. Absent: tachycardia - GI/Abdominal GI/Abdominal exam: Present: normal bowel sounds, soft. Absent: rebound, rigid, tenderness - Extremities Exam Extremities exam: Absent: calf tenderness, pedal edema, tenderness - Back Exam Back exam: Absent: CVA tenderness (L), CVA tenderness (R) - Psychiatric Psychiatric exam: Present: normal affect, normal mood - Skin Skin exam: Absent: rash Internal Medicine: Result - Labs CBC & Chem 7: 03/24/18 07:32 03/23/18 00:09 Labs: Short CBC 03/23/18 03/24/18 Range/Units 16:54 07:32 WBC 5.2 (4.3-11.1) K/mcL Hgb 9.1 L 9.0 L (11.5-15.4) g/dL Hct 28.2 L 28.7 L (35.3-44.9) % Plt Count 206 (140-400) K/mcL Neutrophils # 3.2 (1.6-8.9) K/mcL - ABG Interpretation ABG results: PT/INR, D-dimer PT 14.2 Seconds (9.4-12.1) H 03/22/18 10:30 D-Dimer < 215 ng/mLFEU (0-500) 03/22/18 10:30 - VTE Documentation of Mechanical Device: Intermittent pneumatic compression device Consult Discharge Plan - Plan Referrals: Naomi Brock CNP [Primary Care Provider] - Lizzie Stallworth [Family Provider] -
[2018-03-24] MEDS ORDERED: Insulin LISPRO 300 UNITS/3 ML VIAL SQ SCH (21:00)
[2018-03-25 05:25] LABS: Basophils % 0.5 %; Eosinophils # 0.1 K/mcL (0.0-0.6); Hematocrit 25.7 % (35.3-44.9); Hemoglobin 8.1 g/dL (11.5-15.4); Immature Granulocytes % 0.2 % (0-4); Lymphocytes # 1.1 K/mcL (0.6-4.6); Lymphocytes % 25.5 %; Mean Corpuscular HGB Conc 31.5 g/dL (31.6-35.5); Mean Corpuscular Hemoglobin 25.6 pg (28.0-33.3); Mean Corpuscular Volume 81.3 fL (83.0-100.0); Mean Platelet Volume 10.8 fL (9.4-12.4); Monocytes # 0.4 K/mcL (0.0-1.3); Monocytes % 10.1 %; Neutrophils # 2.6 K/mcL (1.6-8.9); Platelet Count 186 K/mcL (140-400); Red Blood Count 3.16 M/mcL (3.82-4.97); Red Cell Distribution Width 15.5 % (11.5-14.5); Segmented Neutrophils % 60.7 %
[2018-03-25 05:48] LABS: % Iron Saturation 4 % (15-50); Iron 17 mcg/dL (50-170); Transferrin 341 mg/dL (203-362)
--- NOTE | 2018-03-25 06:26 | Electrocardiograph Report ---
[facility] 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
[2018-03-25 07:37] VITALS: BP 128/72
[2018-03-25] MEDS: Insulin LISPRO 300 UNITS/3 ML VIAL SQ SCH (08:41)
--- NOTE | 2018-03-25 09:07 | Discharge Summary ---
- NOTES TO OUTPATIENT PROVIDER Notes to Outpatient Provider: f/u with PCP in one week. Call surgery Dr. Calderon' s office to disucss about pathology / biopsy reports regarding your EGD and Colonoscopy. Cont holding Xarelto for 5 more days and go for CBC in 3 days. f/ u with GI Dr. Panda / Dr. Aponte in 1-2 weeks Orders not resulted at time of discharge: Pending orders 03/24/18 09:22 H. pylori Urease Culture [RM] Routine 03/24/18 09:47 Surgical Pathology [PTH] Routine Date of Encounter: 03/25/18 Time of Encounter: 09:05 - Discharge Diagnosis (1) Acute blood loss anemia Priority: Primary Status: Acute (2) GI bleed Priority: Primary Status: Acute Qualifiers: GI bleed type/associated pathology: unspecified gastrointestinal hemorrhage type Qualified Code(s): K92.2 - Gastrointestinal hemorrhage, unspecified (3) A-fib Priority: Secondary Status: Chronic Qualifiers: Atrial fibrillation type: chronic Qualified Code(s): I48.2 - Chronic atrial fibrillation (4) Diabetes mellitus Priority: Secondary Status: Chronic Qualifiers: Diabetes mellitus type: type 2 Diabetes mellitus terminal superintendent insulin use: without usp use Diabetes mellitus complication status: without complication Qualified Code(s): E11.9 - Type 2 diabetes mellitus without complications (5) Hypertension Priority: Secondary Status: Acute Qualifiers: Hypertension type: essential hypertension Qualified Code(s): I10 - Essential (primary) hypertension (6) DVT prophylaxis Priority: Secondary Status: Acute Hospital course: Ms. 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 She also noticed black tarry stool from last 1 week. In the ER initial lab hemoglobin 6.8, positive Hemoccult,, slight raised BNP but normal troponin and d-dimer and a stable vitals was found. Pt was admitted for acute symptomatic anemia and gave 2 U blood transfusion and started on PPI drip. Pt's Hb improved and @ 8.1 today after 2 U PRBC. Her EGD - showed small hiatal hernia, erythematous mucosa in Antrum noticed - no bleeding ulcers, Colonscopy showed -Non thrombosed ext hemorrhids, multiple rectal polyps and one small transverse colon polyp. So switched to PO PPI BID and Carafate. Pt has been tolerating pO intake well. Recommend to continue holding Xarelto for 5 more days until she see her PCP. Gave an rx for out pt labs CBC. Also asked the pt to f/u with GI for possible Endo Capsular study. - Time Spent with Patient Total time spent providing and/or coordinating discharge services: - Discharge Medications Prescriptions: Ferrous Sulfate 325 mg PO BID #60 tablet Omeprazole [PriLOSEC] 20 mg PO BIDAC #60 capsule. Sucralfate [Carafate] 1 gm PO QIDAC #120 tablet Home Medications: Gabapentin [Neurontin] 800 mg PO TID PRN 11/13/17 [History] Lisinopril [Zestril] 10 mg PO DAILY 11/13/17 [History] hydroCHLOROthiazide [Hydrochlorothiazide] 25 mg PO DAILY 11/13/17 [History] Diltiazem CD (24hr) [Cardizem CD] 120 mg PO DAILY #30 cap.er.24h 11/15/17 [Rx] Cholecalciferol (Vitamin D3) [Vitamin D3] 10,000 unit PO MOWEFR 03/22/18 [ History] Pravastatin Sodium 10 mg PO HS 03/22/18 [History] metFORMIN [Glucophage] 500 mg PO BID 03/22/18 [History] Ferrous Sulfate 325 mg PO BID #60 tablet 03/25/18 [Rx] Omeprazole [PriLOSEC] 20 mg PO BIDAC #60 capsule. 03/25/18 [Rx] Sucralfate [Carafate] 1 gm PO QIDAC #120 tablet 03/25/18 [Rx] Allergies/Adverse Reactions: 3 Allergy/AdvReac Type Severity Reaction Status Date / Time No Known Allergies Allergy Verified 03/22/18 12:24 Date of admission: 03/22/18 12:55 Primary care physician: Naomi Brock, - Constitutional Vitals: Temp Pulse Resp BP Pulse Ox 98.5 F 71 18 128/72 98 03/25/18 07:34 03/25/18 07:34 03/25/18 07:34 03/25/18 07:34 03/25/18 07:34 General appearance: Present: A&O X 3, no acute distress, answers questions appropriately - Head Head exam: Present: atraumatic, normal inspection - Neck Neck exam general surgery: Present: supple - Respiratory Respiratory exam: Present: decreased breath sounds. Absent: rales, respiratory distress, rhonchi, wheezes - Cardiovascular Cardiovascular exam: Present: RRR, +S1, +S2. Absent: tachycardia - GI/Abdominal GI/Abdominal exam: Present: normal bowel sounds, soft. Absent: rebound, rigid, tenderness - Extremities Exam Extremities exam: Absent: calf tenderness, pedal edema, tenderness - Back Exam Back exam: Absent: CVA tenderness (L), CVA tenderness (R) - Neurological Exam Neurological exam: Present: alert, oriented X3 - Psychiatric Psychiatric exam: Present: normal affect, normal mood - Skin Skin exam: Absent: rash - Patient Status Disposition: Home, Self-Care Condition: Good Overall status at discharge: patient is back to baseline - Discharge Instructions Follow Up With: Naomi Brock CNP [Primary Care Provider] - Lizzie Stallworth [Family Provider] - Avel Panda MD [Partnered Physician] - - Diet and Activity Activity: increase activity as tolerated Diet: low salt diet - VTE Documentation of Mechanical Device: Intermittent pneumatic compression device
[2018-03-25] MEDS: Diltiazem CD (24hr) 120 MG CAPSULE PO SCH (10:27)
[2018-03-25] MEDS: Sucralfate 1 GM TABLET PO SCH (10:27)
[2018-03-25] MEDS: Gabapentin 400 MG CAPSULE PO SCH (10:27)
== END 2018-03-25 10:52 | disposition home or self-care (01) | DRG 378 ==
LOC: EMEROO 10:05 → 2ANU 12:55
PROVIDERS: ADMIT General Practice; ATTEND General Practice
PROC: ENDOEBX (2018-03-24 09:00)

== ENCOUNTER 2018-05-14 11:05 | Observation (INO) ==
[2018-05-14 12:12] LABS: Basophils % 0.5 %; Eosinophils # 0.1 K/mcL (0.0-0.6); Eosinophils % 2.1 %; Immature Granulocytes % 0.5 % (0-4); Lymphocytes # 1.2 K/mcL (0.6-4.6); Lymphocytes % 28.1 %; Mean Corpuscular HGB Conc 30.8 g/dL (31.6-35.5); Mean Corpuscular Hemoglobin 23.7 pg (28.0-33.3); Mean Corpuscular Volume 76.9 fL (83.0-100.0); Mean Platelet Volume 11.6 fL (9.4-12.4); Monocytes # 0.4 K/mcL (0.0-1.3); Monocytes % 9.4 %; Neutrophils # 2.6 K/mcL (1.6-8.9); Platelet Count 222 K/mcL (140-400); Red Blood Count 3.38 M/mcL (3.82-4.97); Red Cell Distribution Width 14.6 % (11.5-14.5); Segmented Neutrophils % 59.4 %
[2018-05-14 14:54] LABS: INR 1.1; Prothrombin Time 12.2 Seconds (9.4-12.1)
[2018-05-14 15:00] LABS: BUN/Creatinine Ratio 22 (6-26); Blood Urea Nitrogen 14 mg/dL (6-20); Calcium 9.1 mg/dL (8.6-10.3); Carbon Dioxide 27 mEq/L (23-29); Chloride 106 mEq/L (98-107); Glucose 117 mg/dL (70-105); Osmolality,Calculated 294 (280-300); Potassium 4.2 mEq/L (3.5-5.1); Sodium 141 mEq/L (136-145); eGFR For African Americans > 60 (> 60); eGFR For Non-African Americans > 60 (> 60)
[2018-05-14 15:06] LABS: % Iron Saturation 4 % (15-50); Iron 21 mcg/dL (50-170); Transferrin 389 mg/dL (203-362)
--- NOTE | 2018-05-14 15:37 | Emergency Department Note ---
Disposition Clinical Impression: Symptomatic anemia Disposition: Admitted As Inpatient Condition: Good Referrals: Naomi Brock CNP [Primary Care Provider] - Lizzie Stallworth [Family Provider] - Forms: ED Satisfaction Letter General Adult HPI - General Chief complaint: ED Recheck/Abnormal Lab/Rx Stated complaint: Low hemoglobin Time Seen by Provider: 05/14/18 13:02 Source: patient Limitations: no limitations Nursing Notes Reviewed: Yes Vital Signs Reviewed: Yes - History of Present Illness HPI Narrative: Patient presents to the emergency department today for concern for anemia. Patient had recent admission and anemia workup. Patient has A. fib and is on Zaroxolyn. Patient underwent upper and lower endoscopy without significant findings. Patient was placed on iron tablets and told to follow-up. The patient has been taking her iron tablets. She presented to the emergency department for repeat checking her hemoglobin and was told to discontinue taking iron supplements. She is here now with hemoglobin of 8 and exertional dyspnea. The patient's records have been reviewed. She has a significantly low iron study. Patient would likely benefit from infusion rather than tablets. Patient's guaiac will be and useful secondary to her continued use of iron supplementation. Further work will be performed patient will be admitted for transfusion. Pain Scale: 0 - Related Data Home Medications Medication Instructions Recorded Confirmed Gabapentin [Neurontin] 800 mg PO TID PRN 11/13/17 05/14/18 hydroCHLOROthiazide 25 mg PO DAILY 11/13/17 05/14/18 [Hydrochlorothiazide] Cholecalciferol (Vitamin D3) 10,000 unit PO MOWEFR 03/22/18 05/14/18 [Vitamin D3] Pravastatin Sodium 10 mg PO HS 03/22/18 05/14/18 metFORMIN [Glucophage] 500 mg PO BID 03/22/18 05/14/18 Previous Rx's Medication Instructions Recorded Diltiazem CD (24hr) [Cardizem CD] 120 mg PO DAILY #30 cap.er.24h 11/15/17 Ferrous Sulfate 325 mg PO BID #60 tablet 03/25/18 Allergies Allergy/AdvReac Type Severity Reaction Status Date / Time No Known Allergies Allergy Verified 05/14/18 11:10 Review of Systems: CONSTITUTIONAL: Fatigue and generalized weakness HEENT: Eyes: No visual changes. Ears, Nose, Throat: No hearing loss, difficulty talking or unable to swallow. SKIN: No rash or itching. CARDIOVASCULAR: No chest pain, chest pressure or chest discomfort. No palpitations or edema. RESPIRATORY: Exertional dyspnea GASTROINTESTINAL: No anorexia, nausea, vomiting or diarrhea. No abdominal pain or blood. GENITOURINARY: No burning on urination or hematuria. NEUROLOGICAL: No headache, dizziness, syncope, paralysis, ataxia, numbness or tingling in the extremities. No change in bowel or bladder control. MUSCULOSKELETAL: No muscle pain, back pain, joint pain or stiffness. Past Medical History - Past Medical History Medical history: Reports: atrial fibrillation, diabetes, GI bleed, hyperlipidemia, other Surgical history: Reports: other (tubal ligation) Psychiatric history: Reports: no psych history - Social History Smoking Status: Never smoker Smokeless Tobacco Status: No Alcohol use: Reports: none Drug use: Reports: none Physical Exam General: Well appearing, nontoxic, no acute distress Head: Normocephalic Atraumatic Eyes: PERRL, EOMI ENT: Airway patent, no stridor Neck: supple, Chest: Lungs clear to auscultation bilateral Cardiac: Regular rate and rhythm, no murmurs, rubs or gallops Abdomen: soft, nontender, nondistended; no guarding, rebound, or tenderness to percussion Musculoskeletal: Calves symmetric, nontender, no palpable cord Skin: No rash, normal skin tone Neuro: Alert and Oriented to person, place, and time; No focal deficit, - General Limitations: no limitations General appearance: alert, in no apparent distress Course - Consultations Consultation #1: Discussed with hospitalist, Dr. Pham. Patient accepted for admission. Vital Signs Temperature 98.1 F 05/14/18 11:07 Pulse Rate 80 05/14/18 11:07 Respiratory Rate 16 05/14/18 11:07 Blood Pressure 158/68 05/14/18 11:07 O2 Sat by Pulse Oximetry 98 05/14/18 11:07 Temperature 98.1 F 05/14/18 11:07 Pulse Rate 80 05/14/18 11:07 Respiratory Rate 16 05/14/18 11:07 Blood Pressure 158/68 05/14/18 11:07 O2 Sat by Pulse Oximetry 98 05/14/18 11:07 Oxygen Delivery Oxygen Delivery Room Air Medical Decision Making - Medical Records Medical records reviewed: Yes I reviewed the patient's medical records. - Lab Data Lab results reviewed: Yes I reviewed the patient's lab results. Result diagrams: 05/14/18 11:52 05/14/18 11:52 Lab Results 05/14/18 05/14/18 05/14/18 Range/Units 11:52 11:52 11:52 WBC 4.3 (4.3-11.1) K/mcL RBC 3.38 L (3.82-4.97) M/mcL Hgb 8.0 L (11.5-15.4) g/dL Hct 26.0 L (35.3-44.9) % MCV 76.9 L (83.0-100.0) fL MCH 23.7 L (28.0-33.3) pg MCHC 30.8 L (31.6-35.5) g/dL RDW 14.6 H (11.5-14.5) % Plt Count 222 (140-400) K/mcL MPV 11.6 (9.4-12.4) fL Immature Gran % 0.5 (0-4) % Seg Neutrophils % 59.4 % Lymphocytes % 28.1 % Monocytes % 9.4 % Eosinophils % 2.1 % Basophils % 0.5 % Neutrophils # 2.6 (1.6-8.9) K/mcL Lymphocytes # 1.2 (0.6-4.6) K/mcL Monocytes # 0.4 (0.0-1.3) K/mcL Eosinophils # 0.1 (0.0-0.6) K/mcL Basophils # 0.0 (0.0-0.2) K/mcL PT 12.2 H (9.4-12.1) Seconds INR 1.1 Sodium 141 (136-145) mEq/L Potassium 4.2 (3.5-5.1) mEq/L Chloride 106 (98-107) mEq/L Carbon Dioxide 27 (23-29) mEq/L BUN 14 (6-20) mg/dL Creatinine 0.64 (0.60-1.20) mg/dL Est GFR ( Amer) > 60 (> 60) Est GFR (Non-Af Amer) > 60 (> 60) BUN/Creatinine Ratio 22 (6-26) Glucose 117 H (70-105) mg/dL Calculated Osmolality 294 (280-300) Calcium 9.1 (8.6-10.3) mg/dL Iron 21 L (50-170) mcg/dL % Saturation 4 L (15-50) % Transferrin 389 H (203-362) mg/dL Troponin I < 0.03 (< 0.04) ng/mL Blood Type Antibody Screen Crossmatch 05/14/18 Range/Units 11:52 WBC (4.3-11.1) K/mcL RBC (3.82-4.97) M/mcL Hgb (11.5-15.4) g/dL Hct (35.3-44.9) % MCV (83.0-100.0) fL MCH (28.0-33.3) pg MCHC (31.6-35.5) g/dL RDW (11.5-14.5) % Plt Count (140-400) K/mcL MPV (9.4-12.4) fL Immature Gran % (0-4) % Seg Neutrophils % % Lymphocytes % % Monocytes % % Eosinophils % % Basophils % % Neutrophils # (1.6-8.9) K/mcL Lymphocytes # (0.6-4.6) K/mcL Monocytes # (0.0-1.3) K/mcL Eosinophils # (0.0-0.6) K/mcL Basophils # (0.0-0.2) K/mcL PT (9.4-12.1) Seconds INR Sodium (136-145) mEq/L Potassium (3.5-5.1) mEq/L Chloride (98-107) mEq/L Carbon Dioxide (23-29) mEq/L BUN (6-20) mg/dL Creatinine (0.60-1.20) mg/dL Est GFR ( Amer) (> 60) Est GFR (Non-Af Amer) (> 60) BUN/Creatinine Ratio (6-26) Glucose (70-105) mg/dL Calculated Osmolality (280-300) Calcium (8.6-10.3) mg/dL Iron (50-170) mcg/dL % Saturation (15-50) % Transferrin (203-362) mg/dL Troponin I (< 0.04) ng/mL Blood Type A POSITIVE Antibody Screen NEGATIVE Crossmatch See Detail - Radiology Data Radiology results reviewed: Yes I reviewed the patient's radiology results. - EKG Data EKG #1 EKG attestation: Yes I reviewed and interpreted this EKG. EKG results narrative: EKG shows sinus rhythm with no significant ST elevations or depressions. No previous EKG for comparison.
[2018-05-14 15:59] LABS: Troponin I < 0.03 ng/mL (< 0.04)
[2018-05-14 16:20] LABS: Bilirubin,Urine Negative (Negative); Blood,Urine Negative (Negative); Clarity,Urine Clear (Clear); Color,Urine Yellow (Yellow); Glucose,Urine (UA) Normal (Normal); Ketones,Urine Negative (Negative); Leukocyte Esterase,Urine Small (Negative); Nitrite,Urine Negative (Negative); PH,Urine 6.5 pH Units (5.0-8.0); Protein,Urine Negative (Neg-Trace); Specific Gravity,Urine < 1.005 (1.010-1.025); Urobilinogen,Urine Normal (Normal)
[2018-05-14 16:23] LABS: Bacteria,Urine Moderate per hpf (None-Few); Hyaline Casts,Urine None Seen per lpf (None-Few); RBC,Urine 0-3 per hpf (0-3); Squamous Epithelial Cell,Urine Many per lpf (None-Few)
[2018-05-14] MEDS ORDERED: hydroCHLOROthiazide 25 MG TABLET PO PRN (18:02)
[2018-05-14] MEDS ORDERED: Gabapentin 400 MG CAPSULE PO PRN (18:02)
[2018-05-14] MEDS ORDERED: D5% in Water 1,000 ML IVC PRN (18:17)
[2018-05-14] MEDS ORDERED: Dextrose Gel 15 GM/37.5 ML TUBE PO PRN ×2 (18:17)
[2018-05-14] MEDS ORDERED: *HR* Dextrose 50 % in Water (Syg) 50 ML SYRINGE IVP PRN (18:17)
[2018-05-14] MEDS: Insulin LISPRO 300 UNITS/3 ML VIAL SQ SCH (20:16)
[2018-05-14] MEDS ORDERED: Insulin LISPRO 300 UNITS/3 ML VIAL SQ SCH (21:00)
--- NOTE | 2018-05-15 02:50 | Internal Med History&Physical ---
Date of Encounter: 05/15/18 Time of Encounter: 00:10 Internal Medicine - H&P: HPI Chief complaint: dyspnea History of present illness: Ms. Rm is a 53 year old female presents to the emergency department today for concern for anemia. Patient had recent admission and anemia workup. Patient has A. fib and is on Zaroxolyn. Patient underwent upper and lower endoscopy without significant findings. Patient was placed on iron tablets and told to discontinue taking iron supplements recently . She was evaluated by the ER staff and her laboratory data revealed hemoglobin of 8 and exertional dyspnea. He and her prior records revealed severe deficiency anemia which most likely will require iron transfusion the patient was admitted for further evaluation and to arrange for iron infusion as an outpatient. Past Med Surg Social Fam HX - Past Medical History Medical history: atrial fibrillation, diabetes, GI bleed, hyperlipidemia, other Additional medical history: anemia Psychiatric history: no psych history - Past Surgical History Surgical History: other - Social History Smoking Status: Never smoker Smokeless Tobacco Status: No Alcohol use: none Drug use: none - Family History Mother Hx Family Cardiac Disorders: Yes Hx Family Endocrine Disorder: Yes Father Hx Family Cardiac Disorders: Yes Hx Family Endocrine Disorder: Yes Internal Medicine - H&P: Meds Gabapentin [Neurontin] 800 mg PO TID PRN 11/13/17 [History] hydroCHLOROthiazide [Hydrochlorothiazide] 25 mg PO DAILY PRN 11/13/17 [History] Diltiazem CD (24hr) [Cardizem CD] 120 mg PO DAILY #30 cap.er.24h 11/15/17 [Rx] Cholecalciferol (Vitamin D3) [Vitamin D3] 10,000 unit PO MOWEFR 03/22/18 [ History] Pravastatin Sodium 10 mg PO HS 03/22/18 [History] metFORMIN [Glucophage] 500 mg PO BID 03/22/18 [History] Ferrous Sulfate 325 mg PO BID #60 tablet 03/25/18 [Rx] Lisinopril [Zestril] 5 mg PO DAILY 05/14/18 [History] Rivaroxaban [Xarelto] 10 mg PO DAILY 05/14/18 [History] 3 Allergy/AdvReac Type Severity Reaction Status Date / Time No Known Allergies Allergy Verified 05/14/18 11:10 All Systems PM: A 10-system review of systems was performed and is negative for pertinent findings except as documented above in the HPI. - Constitutional Constitutional: no chills, no fever(s), no night sweats - Cardiovascular Cardiovascular ROS IM: dyspnea, dyspnea on exertion, palpitations, no chest pain , no diaphoresis, no lightheadedness, no syncope - Respiratory Respiratory: no cough, no dyspnea, no wheezing, no excessive phlegm production - Gastrointestinal Gastrointestinal: no abdominal pain, no diarrhea, no hematemesis, no hematochezia, no melena, no nausea, no vomiting - Neurological Neurological ROS: no confusion, no convulsions, no focal weakness, no numbness, no tingling, no tremor(s) - Constitutional Vitals: Temp Pulse Resp BP Pulse Ox 97.4 F L 73 14 132/77 99 05/14/18 20:32 05/14/18 20:32 05/14/18 20:32 05/14/18 20:32 05/14/18 19:05 General appearance: Present: A&O X 3 - Head Head exam: Present: atraumatic, normocephalic - Neck Neck exam general surgery: Present: supple, trachea midline. Absent: lymphadenopathy - Respiratory Respiratory exam: Present: CTAB. Absent: accessory muscle use, rales, rhonchi, wheezes - Cardiovascular Cardiovascular exam: Present: RRR, +S1, +S2. Absent: diastolic murmur, gallop, rubs, systolic murmur - GI/Abdominal GI/Abdominal exam: Present: normal bowel sounds, soft, no peritoneal signs. Absent: distended, tenderness - Extremities Exam Extremities exam: Present: warm, radial pulses palpable and symmetrical. Absent : calf tenderness, cyanotic, pedal edema Internal Med - H&P Results - Labs CBC & Chem 7: 05/15/18 08:13 05/15/18 08:13 - Assessment and plan (1) Symptomatic anemia Current Visit: Yes Status: Acute Assessment and plan: Patient had recent admission and anemia workup. Patient underwent upper and lower endoscopy without significant findings. Patient was placed on iron tablets and told to discontinue taking iron supplements recently. He and her prior records revealed severe deficiency anemia which most likely will require iron transfusion which could be arranged as an outpatient in a.m. (2) Hypertension Current Visit: No Status: Acute Assessment and plan: We will continue home medication, adjust regimen if indicated (3) Diabetes mellitus Current Visit: No Status: Chronic Assessment and plan: We will continue home medication and start the patient on insulin sliding scale Qualifiers: Diabetes mellitus type: type 2 Diabetes mellitus correction insulin use: without correction use Diabetes mellitus complication status: without complication Qualified Code(s): E11.9 - Type 2 diabetes mellitus without complications (4) DVT prophylaxis Current Visit: No Status: Acute Assessment and plan: Patient has A. fib and is on anticoagulation with Zaroxolyn - Time Spent With Patient Total time spent is greater than 50% in coordination of care (as documented) at patient's floor/unit and/or counseling patient:
[2018-05-15] MEDS ORDERED: Sodium Ferric Gluconat/Sucrose 125 MG in 0.9 % Sodium Chloride 100 ML IVPB ONE (07:50)
[2018-05-15] MEDS ORDERED: *HR* Metformin 500 MG TABLET PO SCH (08:00)
[2018-05-15] MEDS ORDERED: Naloxone 0.4 MG/ML INJ IVP PRN (08:06)
[2018-05-15] MEDS: Insulin LISPRO 300 UNITS/3 ML VIAL SQ SCH ×2 (08:07→11:42)
[2018-05-15 08:42] LABS: Basophils % 0.5 %; Eosinophils # 0.1 K/mcL (0.0-0.6); Eosinophils % 2.5 %; Hematocrit 27.1 % (35.3-44.9); Hemoglobin 8.4 g/dL (11.5-15.4); Immature Granulocytes % 0.5 % (0-4); Lymphocytes # 1.1 K/mcL (0.6-4.6); Lymphocytes % 26.4 %; Mean Corpuscular Hemoglobin 24.3 pg (28.0-33.3); Mean Corpuscular Volume 78.3 fL (83.0-100.0); Mean Platelet Volume 11.4 fL (9.4-12.4); Monocytes # 0.4 K/mcL (0.0-1.3); Monocytes % 9.6 %; Neutrophils # 2.4 K/mcL (1.6-8.9); Platelet Count 199 K/mcL (140-400); Red Blood Count 3.46 M/mcL (3.82-4.97); Red Cell Distribution Width 14.9 % (11.5-14.5); Segmented Neutrophils % 60.5 %
[2018-05-15 08:50] LABS: INR 1.1; Prothrombin Time 12.2 Seconds (9.4-12.1)
[2018-05-15 08:53] LABS: Activated Partial Thrombo Time 30.2 Seconds (26.0-36.0)
[2018-05-15] MEDS ORDERED: Cholecalciferol (D-3) 1,000 UNIT TABLET PO SCH (09:00)
[2018-05-15] MEDS ORDERED: Diltiazem CD (24hr) 120 MG CAPSULE PO SCH (09:00)
[2018-05-15] MEDS ORDERED: Iron Sucrose Complex 250 MG in 0.9 % Sodium Chloride 250 ML IVPB SCH (09:00)
[2018-05-15 09:06] LABS: Alanine Aminotransferase 11 Units/L (7-52); Albumin 3.5 g/dL (3.5-5.7); Albumin/Globulin Ratio 1.3 (1.1-2.2); Alkaline Phosphatase 74 Units/L (34-104); Aspartate Amino Transferase 13 Units/L (13-39); BUN/Creatinine Ratio 19 (6-26); Bilirubin,Total 0.5 mg/dL (0.3-1.0); Blood Urea Nitrogen 11 mg/dL (6-20); Calcium 8.8 mg/dL (8.6-10.3); Carbon Dioxide 26 mEq/L (23-29); Chloride 108 mEq/L (98-107); Chol/HDL Ratio 2.6 (0-4.9); Cholesterol 138 mg/dL (< 200); Globulin 2.6 g/dL (2.4-3.5); Glucose 117 mg/dL (70-105); HDL Cholesterol 53 mg/dL (40-59); LDL Cholesterol,Calculated 68 mg/dL (0-99); Magnesium 2.1 mg/dL (1.6-2.6); Osmolality,Calculated 288 (280-300); Phosphorous 5.3 mg/dL (2.7-4.5); Potassium 3.9 mEq/L (3.5-5.1); Sodium 139 mEq/L (136-145); Total Protein 6.1 g/dL (6.4-8.9); Triglycerides 84 mg/dL (< 150); eGFR For African Americans > 60 (> 60); eGFR For Non-African Americans > 60 (> 60)
--- NOTE | 2018-05-15 10:45 | Discharge Summary ---
- NOTES TO OUTPATIENT PROVIDER Notes to Outpatient Provider: Symptomatic anemia refractory to PO iron. Given IV iron as an inpatient and arranged for outpatient follow up with hematology for IV iron injection. Patient will need to follow up outpatient with GI and cardiology for further evaluation of anemia and risk/benefit of anticoagulation in view of symptomatic anemia. 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 Rm is a 53 year old female with recently diagnosed iron-def anemia ( unclear source with negative EGD/colonoscopy), afib on xarelto, presented to the ED with concern for ongoing symptomatic anemia. Denies any worsening melena , BRBPR, hematochezia. No PV bleeding, spotting, or history of endometrial CA. Hb 8.0 which is slightly better than 7.7 done 2 days ago. Repeat iron study showed refractory iron deficiency despite claiming compliance to PO iron. She was given IV venofer as an inpatient and was arranged for outpatient followup with hematology for IV iron infusion. Discharge discussed with: patient - Time Spent with Patient Total time spent providing and/or coordinating discharge services: Greater than 30 minutes - Discharge Medications Home Medications: Gabapentin [Neurontin] 800 mg PO TID PRN 11/13/17 [History] hydroCHLOROthiazide [Hydrochlorothiazide] 25 mg PO DAILY PRN 11/13/17 [History] Diltiazem CD (24hr) [Cardizem CD] 120 mg PO DAILY #30 cap.er.24h 11/15/17 [Rx] Cholecalciferol (Vitamin D3) [Vitamin D3] 10,000 unit PO MOWEFR 03/22/18 [ History] Pravastatin Sodium 10 mg PO HS 03/22/18 [History] metFORMIN [Glucophage] 500 mg PO BID 03/22/18 [History] Ferrous Sulfate 325 mg PO BID #60 tablet 03/25/18 [Rx] Lisinopril [Zestril] 5 mg PO DAILY 05/14/18 [History] Rivaroxaban [Xarelto] 10 mg PO DAILY 05/14/18 [History] Allergies/Adverse Reactions: 3 Allergy/AdvReac Type Severity Reaction Status Date / Time No Known Allergies Allergy Verified 05/14/18 11:10 Date of admission: 05/14/18 17:13 Primary care physician: Naomi Brock CNP - Constitutional Vitals: Temp Pulse Resp BP Pulse Ox 97.6 F 78 15 167/74 100 05/15/18 05:28 05/15/18 05:28 05/15/18 05:28 05/15/18 05:28 05/15/18 05:28 Exam: General: Alert and oriented HEENT:EOM, pupils equal, round, and reactive. Cardiovascular:Normal S1 & S2, no murmurs or gallops. No JVD. Pulse regular. Lungs:Normal breath sounds, no wheezes or crackles. Abdomen:Soft, non-tender, no rigidity. Extremities:No deformity, no edema or tenderness, no joint swelling. Neurological:Normal cognition and motor skills. Skin:Normal color, no rash, no lesions. Pulses:Carotid and radial pulses normal +2. Rest of the physical exam is non-contributory - Patient Status Disposition: Home, Self-Care Condition: Good Overall status at discharge: patient is progressing back to baseline - Discharge Instructions Instructions: Atrial Flutter (DC), Anemia (GEN), Diabetes Mellitus Type 2 in Adults (DC) Follow Up With: Naomi Brock CNP [Primary Care Provider] - Additional Instructions: Follow up with Arlene An for IV iron infusion
[2018-05-15 11:03] VITALS: BP 145/81
[2018-05-15] MEDS ORDERED: *HR* Rivaroxaban 10 MG TABLET PO SCH (17:00)
--- NOTE | 2018-05-16 06:44 | Electrocardiograph Report ---
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
== END 2018-05-15 13:46 | disposition home or self-care (01) ==
LOC: 3ANU 11:05 → EMEROO 11:05 → SUATTDRO 17:13 → 3ANU 17:39
PROVIDERS: ADMIT Internal Medicine Nephrology; ATTEND Internal Medicine